=== PATIENT | male | born 1950 | race Caucasian/White ===

== ENCOUNTER 2017-02-02 06:12 | Day surgery (SDC) | payer MEDICARE, OTHER ==
[~2017-02-02 06:12] MED LIST: Lactated Ringers 1,000 ML IV SCH
[2017-02-02] MEDS ORDERED: Propofol 200 MG/20 ML SDV ONE ×2 (07:40→07:47)
[2017-02-02] MEDS ORDERED: fentaNYL 100 MCG/2 ML SDV ONE (07:40)
[2017-02-02 08:38] VITALS: BP 112/64
--- NOTE | 2017-02-02 11:55 | OR ---
PREOPERATIVE DIAGNOSES: 1. History of multiple polyps. 2. Family history of colon cancer - father. POSTOPERATIVE DIAGNOSES: Multiple polyps x7, sigmoid diverticulosis. PROCEDURE PROPOSED: Total flexible colonoscopy. PROCEDURE DONE: Total flexible colonoscopy with polypectomy x7. INDICATION: This is a 66-year-old gentleman who has been undergoing colonic surveillance due to a personal history of polyps and also a family history of colon cancer. His last examination was 3 years ago, at which point, he was found to have 7 polyps. TECHNIQUE: The patient was brought to the endoscopy suite and placed in left lateral decubitus position. He was sedated per [employer] with propofol. The flexible video colonoscope was then passed transanally and under visualization advanced to the cecum. The patient was found to have a couple of cecal polyps, 1 removed by cold snare technique right in the base of the cecum and another 1 just little bit beyond the cecum removed by cold biopsy forceps. I then found 3 polyps in the transverse colon, all removed by Jumbo cold biopsy forceps. A sixth polyp at 90 cm and another polyp found at 20 cm, again, removed by cold biopsy forceps. He was also noted to have some sigmoid diverticulosis, and the scope was then withdrawn. He tolerated the procedure well. FINAL IMPRESSION: 1. Sigmoid diverticulosis. 2. Colonic polyps x7. 3. Family history of colon cancer - father. PLAN: He will be sent a letter with the pathology report. I felt that he should have another 3-year repeat exam due to the multitude of polyps that are being found. SCM: 02/02/2017 08:10:04 MODL: 02/02/2017 11:50:20 /[id number]
--- NOTE | 2017-02-08 09:49 | LETTER ---
02/07/2017 RE: SHA MEJIA : 1950 Dear Dee: The polyps removed from your colon were all benign. There was a total of 7 polyps and they were all considered precancerous type polyps known as adenomas. Because of this finding, I feel that you should have a 3 year followup exam of your colon to make sure you are not continuing to form polyps. If you have any further questions regarding this feel free to call. Respectfully,
== END 2017-02-02 09:10 | disposition home or self-care (01) ==
LOC: VM.SDS 06:12
PROVIDERS: ATTEND Surgery
DX: Z12.11 Encounter for screening for malignant neoplasm of colon (principal); D12.0 Benign neoplasm of cecum; D12.6 Benign neoplasm of colon, unspecified; Z86.010 Personal history of colon polyps; K57.30 Diverticulosis of large intestine without perforation or abscess without bleeding; Z88.8 Allergy status to other drugs, medicaments and biological substances
CPT/HCPCS: 00810; 45380; 45385; J2704; J3010; J7120; 88305

== ENCOUNTER 2017-02-17 14:12 | Emergency (ER) | payer MEDICARE, OTHER ==
[2017-02-17] MEDS ORDERED: Sodium Chloride 0.9% 10 ML Syringe FLUSH PRN (14:46)
--- NOTE | 2017-02-17 14:55 | EDM.PDOC ---
ED HPI GENERAL MEDICAL PROBLEM - General Chief Complaint: General Stated Complaint: BP ISSUES Time Seen by Provider: 02/17/17 14:23 Source of Information: Reports: Patient, Family, RN, RN Notes Reviewed History Limitations: Reports: No Limitations - History of Present Illness INITIAL COMMENTS - FREE TEXT/NARRATIVE: Patient presents to the ED at [facility] complaining of feeling "foggy", delayed, and mild confusion. Patient states he felt this way this AM when he was getting ready for work. His symptoms progressively gotten worse. While at work, a nurse checked his blood pressure which shows 150's / 110's. Patient states his blood pressures usually run 120's / 60's. Patient denies any chest pain or SOB. Denies any N/V/D. No abdominal pain. Onset: Today - Related Data Allergies Allergy/AdvReac Type Severity Reaction Status Date / Time hay fever Allergy Itching Uncoded 02/02/17 06:43 Home Meds: Home Meds Furosemide [Lasix] 60 mg PO DAILY 12/12/13 [History] Multivits,Ca,Minerals/Iron/FA [Thera-M] 1 cap PO DAILY 12/12/13 [History] Verapamil [Calan SR] 1 tab PO DAILY 12/12/13 [History] Allopurinol [Zyloprim] 150 mg PO DAILY 01/25/17 [History] Clobetasol [Clobetasol Propionate 0.05%] 30 gm TOP BID 01/25/17 [History] Dabigatran Etexilate Mesylate [Pradaxa] 150 mg PO BID 01/25/17 [History] Tadalafil [Cialis] 5 mg PO DAILY PRN 01/25/17 [History] Past Medical History HEENT History: Reports: Allergic Rhinitis, Other (See Below) Other HEENT History: deviated nasal septum Cardiovascular History: Reports: Afib, High Cholesterol, Hypertension Respiratory History: Reports: COPD, Sleep Apnea Gastrointestinal History: Reports: Colon Polyp Genitourinary History: Reports: Other (See Below) Other Genitourinary History: ED Musculoskeletal History: Reports: Back Pain, Chronic, Gout, Osteoarthritis Neurological History: Reports: Other (See Below) Other Neuro History: tremor. mortons neuroma Psychiatric History: Reports: Addiction Endocrine/Metabolic History: Reports: Obesity/BMI 30+ Hematologic History: Reports: None Immunologic History: Reports: None Oncologic (Cancer) History: Reports: Prostate Dermatologic History: Reports: Eczema - Past Surgical History HEENT Surgical History: Reports: Tonsillectomy Cardiovascular Surgical History: Reports: Cardiac Ablation, Other (See Below) Other Cardiovascular Surgeries/Procedures: cardioversion x3 GI Surgical History: Reports: Colonoscopy Male Surgical History: Reports: TURBT-Transurethral Resection of Bladder Tumor Musculoskeletal Surgical History: Reports: Other (See Below) Other Musculoskeletal Surgeries/Procedures:: foot sx Oncologic Surgical History: Reports: None Dermatological Surgical History: Reports: None Social & Family History - Tobacco Use Smoking Status *Q: Former Smoker Used Tobacco, but Quit: Yes Month Tobacco Last Used: 20 years ago - Alcohol Use Days Per Week of Alcohol Use: 7 Number of Drinks Per Day: 6 Total Drinks Per Week: 42 - Recreational Drug Use Recreational Drug Use: No Drug Use in Last 12 Months: No ED ROS GENERAL - Review of Systems Review Of Systems: See Below Constitutional: Denies: Fever, Chills, Weakness Respiratory: Denies: Shortness of Breath, Cough Cardiovascular: Denies: Chest Pain, Palpitations GI/Abdominal: Reports: Nausea. Denies: Abdominal Pain, Vomiting Skin: Reports: No Symptoms Neurological: Reports: Confusion ("foggy"), Other. Denies: Dizziness, Headache ED EXAM, GENERAL - Physical Exam Exam: See Below Exam Limited By: No Limitations General Appearance: Alert, No Apparent Distress, Obese Eye Exam: Bilateral Eye: EOMI, Normal Inspection, PERRL Head: Atraumatic, Normocephalic Neck: Supple Respiratory/Chest: No Respiratory Distress, Lungs Clear, Normal Breath Sounds Cardiovascular: Regular Rate, Rhythm, No Murmur Peripheral Pulses: 2+: Radial (L), Radial (R) GI/Abdominal: Normal Bowel Sounds, Soft, Non-Tender Neurological: Alert, Oriented, Normal Cognition Skin Exam: Warm, Dry, Intact, Normal Color, No Rash EKG INTERPRETATION EKG Date: 02/17/17 Time: 14:23 Rhythm: NSR Rate (Beats/Min): [address] [employer]: Normal P-Wave: Present QRS: Normal ST-T: Normal QT: Normal NC/PQ Interval: 0.20 Comparison: NA - No Prior EKG EKG Interpretation Comments: 1. Normal Sinus Rhythm 2. Normal ECG Course - Vital Signs Last Recorded V/S: Last Vital Signs Temp 36.9 C 02/17/17 14:15 Pulse 82 02/17/17 14:15 Resp 20 02/17/17 14:15 BP 156/81 H 02/17/17 14:15 Pulse Ox - Orders/Labs/Meds Orders: Active Orders 24 hr Category Date Time Status Head wo Cont [CT] Stat Exams 02/17/17 14:44 Taken Sodium Chloride 0.9% [Saline Flush] Med 02/17/17 14:46 Active 10 ml FLUSH ASDIRECTED PRN Peripheral IV Insertion Adult [OM.PC] Routine Oth 02/17/17 14:46 Ordered Medication Orders Sodium Chloride (Saline Flush) 10 ml FLUSH ASDIRECTED PRN PRN Reason: Keep Vein Open Labs: Laboratory Tests 02/17/17 02/17/17 Range/Units 15:24 15:24 WBC 10.6 H (4.0-10.0) x10^3/uL RBC 5.00 (4.5-6.0) x10^6/uL Hgb 16.5 (14.0-18.0) g/dL Hct 47.0 (40.0-52.0) % MCV 94.0 H (78.0-93.0) fL MCH 33.0 H (26.0-32.0) pg MCHC 35.1 (32.0-36.0) g/dL RDW Coeff of Carine 12.9 (10.0-15.0) % Plt Count 180 (130-400) x10^3/uL Neut % (Auto) 53.4 (50.0-80.0) % Lymph % (Auto) 33.8 (25.0-50.0) % [place] % (Auto) 11.1 H (2.0-11.0) % Eos % (Auto) 1.5 (0.0-4.0) % Baso % (Auto) 0.2 (0.2-1.2) % Sodium 143 (136-145) mmol/L Potassium 3.6 (3.5-5.1) mmol/L Chloride 104 (98-107) mmol/L Carbon Dioxide 31 (21-32) mmol/L BUN 7 (7-18) mg/dL Creatinine 1.1 (0.70-1.30) mg/dL Est Cr Clr Drug Dosing 66.95 mL/min Estimated GFR (MDRD) > 60 Glucose 112 H (74-106) mg/dL Calcium 9.7 (8.5-10.1) mg/dL Meds: Medications Generic Name Dose Route Start Last Admin Trade Name Devenq PRN Reason Stop Dose Admin Sodium Chloride 10 ml 02/17/17 14:46 Saline Flush FLUSH ASDIRECTED PRN Keep Vein Open - Radiology Interpretation Free Text/Narrative:: CT Head: No plain CT evidence of acute intracranial process CT Results Date: 02/17/17 CT Results Time: 16:05 Departure - Departure Time of Disposition: 15:52 Disposition: Home, Self-Care 01 Condition: Good Clinical Impression: High blood pressure Qualifiers: Hypertension type: essential hypertension Qualified Code(s): I10 - Essential ( primary) hypertension - Discharge Information Instructions: Hypertension Referrals: Jorge Alberto Bernard MD [Primary Care Provider] - Forms: ED Department Discharge Additional Instructions: 1. Stay well hydrated and rest 2. Continue taking home blood pressure medications as prescribed 3. Make an appointment to see Dr. Bernard this week to see if there are any changes needed to your blood pressures medications 4. Call with any questions - Problem List Review Problem List Initiated/Reviewed/Updated: Yes - My Orders Last 24 Hours: My Active Orders 02/17/17 14:44 Head wo Cont [CT] Stat 02/17/17 14:46 Sodium Chloride 0.9% [Saline Flush] 10 ml FLUSH ASDIRECTED PRN Peripheral IV Insertion Adult [OM.PC] Routine - Assessment/Plan Last 24 Hours: My Active Orders 02/17/17 14:44 Head wo Cont [CT] Stat 02/17/17 14:46 Sodium Chloride 0.9% [Saline Flush] 10 ml FLUSH ASDIRECTED PRN Peripheral IV Insertion Adult [OM.PC] Routine
[2017-02-17 15:43] LABS: CHLORIDE,CL 104 mmol/L (98-107); SODIUM,NA 143 mmol/L (136-145)
[2017-02-17 16:39] VITALS: BP 149/87
== END 2017-02-17 16:20 | disposition home or self-care (01) ==
LOC: VM.ED 14:12
DX: I10 Essential (primary) hypertension (principal); I48.91 Unspecified atrial fibrillation; E78.00 Pure hypercholesterolemia, unspecified; J44.9 Chronic obstructive pulmonary disease, unspecified; M19.90 Unspecified osteoarthritis, unspecified site; M10.9 Gout, unspecified; E66.9 Obesity, unspecified; Z68.31 Body mass index [BMI] 31.0-31.9, adult; Z86.010 Personal history of colon polyps; Z90.89 Acquired absence of other organs; Z87.891 Personal history of nicotine dependence; Z79.899 Other long term (current) drug therapy
CPT/HCPCS: 36415; 70450; 80048; 85025; 99284; 99284-GF

== ENCOUNTER 2019-02-01 19:56 | Emergency (ER) | payer MEDICARE, OTHER ==
[2019-02-01 20:23] VITALS: PULSE 77
[2019-02-01 20:52] LABS: CHLORIDE,CL 102 mmol/L (98-107); SODIUM,NA 141 mmol/L (136-145)
[2019-02-01 20:53] LABS: ANION GAP 15.8 mmol/L (10-20)
--- NOTE | 2019-02-01 21:52 | EDM.PDOC ---
ED HPI GENERAL MEDICAL PROBLEM - General Chief Complaint: Genitourinary Problem Stated Complaint: blood in urine Time Seen by Provider: 02/01/19 20:05 Source of Information: Reports: Patient History Limitations: Reports: No Limitations - History of Present Illness INITIAL COMMENTS - FREE TEXT/NARRATIVE: Pt. presents to ER with 1 day history of improving mariam hematuria. Pt. states that it started last evening. Initially, the urine was quite red, but it has now been a dark antoinette. Denies any fever or chills. No flank pain. No groin pain. Denies any abdominal or CVA tenderness. Pt. denies any history of hematuria, nephrolithiasis, or urinary pathology. He does have a history of slow-growing prostate CA. Pt. is on pradaxa. He had cryoablation but continues to have intermittent issues with a-fib, so he continues to be anticoagulated. Denies any epistaxis, blood in stools, vomiting blood, bruising, or previous hematuria. Pt. denies any recent trauma. Onset Date: 01/31/19 - Related Data Allergies Allergy/AdvReac Type Severity Reaction Status Date / Time hay fever Allergy Itching Uncoded 02/01/19 20:17 Home Meds: Home Meds Furosemide [Lasix] 60 mg PO DAILY 12/12/13 [History] Multivits,Ca,Minerals/Iron/FA [Thera-M] 1 cap PO DAILY 12/12/13 [History] Verapamil [Calan SR] 1 tab PO DAILY 12/12/13 [History] Allopurinol [Zyloprim] 150 mg PO DAILY 01/25/17 [History] Clobetasol [Clobetasol Propionate 0.05%] 30 gm TOP BID 01/25/17 [History] Dabigatran Etexilate Mesylate [Pradaxa] 150 mg PO BID 01/25/17 [History] Tadalafil [Cialis] 5 mg PO DAILY PRN 01/25/17 [History] Past Medical History HEENT History: Reports: Allergic Rhinitis, Other (See Below) Other HEENT History: deviated nasal septum Cardiovascular History: Reports: Afib, High Cholesterol, Hypertension Respiratory History: Reports: COPD, Sleep Apnea Gastrointestinal History: Reports: Colon Polyp Genitourinary History: Reports: Other (See Below) Other Genitourinary History: ED Musculoskeletal History: Reports: Back Pain, Chronic, Gout, Osteoarthritis Neurological History: Reports: Other (See Below) Other Neuro History: tremor. mortons neuroma Psychiatric History: Reports: Addiction Endocrine/Metabolic History: Reports: Obesity/BMI 30+ Hematologic History: Reports: None Immunologic History: Reports: None Oncologic (Cancer) History: Reports: Prostate Dermatologic History: Reports: Eczema - Past Surgical History HEENT Surgical History: Reports: Tonsillectomy Cardiovascular Surgical History: Reports: Cardiac Ablation, Other (See Below) Other Cardiovascular Surgeries/Procedures: cardioversion x3 GI Surgical History: Reports: Colonoscopy Male Surgical History: Reports: TURBT-Transurethral Resection of Bladder Tumor Musculoskeletal Surgical History: Reports: Other (See Below) Other Musculoskeletal Surgeries/Procedures:: foot sx Oncologic Surgical History: Reports: None Dermatological Surgical History: Reports: None ED ROS GENERAL - Review of Systems Review Of Systems: See Below Constitutional: Reports: No Symptoms. Denies: Fever, Chills, Malaise, Weakness , Fatigue, Night Sweats, Diaphoresis, Decreased Appetite, Weight Loss HEENT: Reports: No Symptoms Respiratory: Reports: No Symptoms Cardiovascular: Reports: No Symptoms Endocrine: Reports: No Symptoms GI/Abdominal: Reports: No Symptoms. Denies: Abdominal Pain : Reports: Hematuria, Other (Hx prostate CA). Denies: Dysuria, Flank Pain, Frequency, Incontinence, Urgency Musculoskeletal: Reports: No Symptoms Skin: Reports: No Symptoms Neurological: Reports: No Symptoms Psychiatric: Reports: No Symptoms Hematologic/Lymphatic: Reports: No Symptoms Immunologic: Reports: No Symptoms ED EXAM, GENERAL - Physical Exam Exam: See Below Exam Limited By: No Limitations General Appearance: Alert, WD/WN, No Apparent Distress Respiratory/Chest: No Respiratory Distress, Lungs Clear, Normal Breath Sounds, No Accessory Muscle Use, Chest Non-Tender Cardiovascular: Normal Peripheral Pulses, Regular Rate, Rhythm, No Edema, No Gallop, No JVD, No Murmur, No Rub Peripheral Pulses: 4+: Radial (R) GI/Abdominal: Soft, Non-Tender, No Organomegaly, No Distention, No Mass (Male) Exam: Deferred Rectal (Males) Exam: Deferred Back Exam: No: CVA Tenderness (L), CVA Tenderness (R) Course - Vital Signs Last Recorded V/S: Last Vital Signs Temp 36.8 C 02/01/19 20:00 Pulse 77 02/01/19 20:00 Resp 16 02/01/19 20:00 BP Pulse Ox - Orders/Labs/Meds Labs: Laboratory Tests 02/01/19 02/01/19 02/01/19 Range/Units 20:10 20:24 20:24 WBC 10.0 (4.0-10.0) x10^3/uL RBC 5.14 (4.5-6.0) x10^6/uL Hgb 17.7 (14.0-18.0) g/dL Hct 49.8 (40.0-52.0) % MCV 96.9 H (78.0-93.0) fL MCH 34.4 H (26.0-32.0) pg MCHC 35.5 (32.0-36.0) g/dL RDW Coeff of Carine 11.9 (10.0-15.0) % Plt Count 174 (130-400) x10^3/uL Neut % (Auto) 56.9 (50.0-80.0) % Lymph % (Auto) 29.2 (25.0-50.0) % [place] % (Auto) 11.5 H (2.0-11.0) % Eos % (Auto) 2.2 (0.0-4.0) % Baso % (Auto) 0.2 (0.2-1.2) % PT 11.4 (10.0-12.8) SEC INR 1.0 L (2.0-3.5) Sodium (136-145) mmol/L Potassium (3.5-5.1) mmol/L Chloride (98-107) mmol/L Carbon Dioxide (21-32) mmol/L Anion Gap (10-20) mmol/L BUN (7-18) mg/dL Creatinine (0.70-1.30) mg/dL Est Cr Clr Drug Dosing mL/min Estimated GFR (MDRD) Glucose (74-106) mg/dL Calcium (8.5-10.1) mg/dL Corrected Calcium (8.5-10.1) mg/dL Total Bilirubin (0.2-1.0) mg/dL AST (15-37) U/L ALT (16-63) U/L Alkaline Phosphatase (46-116) U/L Total Protein (6.4-8.2) g/dL Albumin (3.4-5.0) g/dL Globulin Albumin/Globulin Ratio Urine Color Dark yellow H (YELLOW) Urine Appearance Cloudy H (CLEAR) Urine pH 5.5 (5.0-8.0) Ur Specific [place] 1.025 Urine Protein 30 H (NEGATIVE) mg/dL Urine Glucose (UA) Negative (NEGATIVE) mg/dL Urine Ketones Trace H (NEGATIVE) mg/dL Urine Occult Blood Large H (NEGATIVE) Urine Nitrite Negative (NEGATIVE) Urine Bilirubin Small H (NEGATIVE) Urine Urobilinogen 1.0 (0.2) EU/dL Ur Leukocyte Esterase Negative (NEGATIVE) Urine RBC >100 H (NOT SEEN) /HPF Urine WBC 0-5 (NOT SEEN) /HPF Ur Squamous Epith Cells Rare (NEGATIVE) /HPF Urine Bacteria Few H (NEGATIVE) /HPF Hyaline Casts Rare H (NEGATIVE) /HPF Urine Mucus Not seen (NEGATIVE) /LPF 02/01/19 Range/Units 20:24 WBC (4.0-10.0) x10^3/uL RBC (4.5-6.0) x10^6/uL Hgb (14.0-18.0) g/dL Hct (40.0-52.0) % MCV (78.0-93.0) fL MCH (26.0-32.0) pg MCHC (32.0-36.0) g/dL RDW Coeff of Carine (10.0-15.0) % Plt Count (130-400) x10^3/uL Neut % (Auto) (50.0-80.0) % Lymph % (Auto) (25.0-50.0) % [place] % (Auto) (2.0-11.0) % Eos % (Auto) (0.0-4.0) % Baso % (Auto) (0.2-1.2) % PT (10.0-12.8) SEC INR (2.0-3.5) Sodium 141 (136-145) mmol/L Potassium 3.8 (3.5-5.1) mmol/L Chloride 102 (98-107) mmol/L Carbon Dioxide 27 (21-32) mmol/L Anion Gap 15.8 (10-20) mmol/L BUN 9 (7-18) mg/dL Creatinine 1.1 (0.70-1.30) mg/dL Est Cr Clr Drug Dosing 65.17 mL/min Estimated GFR (MDRD) > 60 Glucose 158 H (74-106) mg/dL Calcium 9.6 (8.5-10.1) mg/dL Corrected Calcium 10.32 H (8.5-10.1) mg/dL Total Bilirubin 0.9 (0.2-1.0) mg/dL AST 22 (15-37) U/L ALT 30 (16-63) U/L Alkaline Phosphatase 91 (46-116) U/L Total Protein 6.9 (6.4-8.2) g/dL Albumin 3.1 L (3.4-5.0) g/dL Globulin 3.8 Albumin/Globulin Ratio 0.82 Urine Color (YELLOW) Urine Appearance (CLEAR) Urine pH (5.0-8.0) Ur Specific [place] Urine Protein (NEGATIVE) mg/dL Urine Glucose (UA) (NEGATIVE) mg/dL Urine Ketones (NEGATIVE) mg/dL Urine Occult Blood (NEGATIVE) Urine Nitrite (NEGATIVE) Urine Bilirubin (NEGATIVE) Urine Urobilinogen (0.2) EU/dL Ur Leukocyte Esterase (NEGATIVE) Urine RBC (NOT SEEN) /HPF Urine WBC (NOT SEEN) /HPF Ur Squamous Epith Cells (NEGATIVE) /HPF Urine Bacteria (NEGATIVE) /HPF Hyaline Casts (NEGATIVE) /HPF Urine Mucus (NEGATIVE) /LPF Departure - Departure Time of Disposition: 21:02 Disposition: Home, Self-Care 01 Condition: Good Clinical Impression: Hematuria - Discharge Information Instructions: Hematuria, Adult Referrals: Jorge Alberto Bernard MD [Primary Care Provider] - Forms: ED Department Discharge Additional Instructions: Follow-up in clinic if continuing to have blood in your urine. It is likely because of the Pradaxa. Your coagulation tests are normal, and you do not have a bladder infection. If you are continuing to have bleeding, you may need a renal ultrasound and cystoscopy to determine the cause. It likely will resolve on its own, however. Return to ER if you have flank pain, fever, chills, or abdominal pain. - Assessment/Plan Plan: Follow-up in clinic if continuing to have blood in your urine. It is likely because of the Pradaxa. Your coagulation tests are normal, and you do not have a bladder infection. If you are continuing to have bleeding, you may need a renal ultrasound and cystoscopy to determine the cause. It likely will resolve on its own, however. Return to ER if you have flank pain, fever, chills, or abdominal pain.
== END 2019-02-01 21:02 | disposition home or self-care (01) ==
LOC: VM.ED 19:56
DX: R31.9 Hematuria, unspecified (principal); I48.91 Unspecified atrial fibrillation; E78.00 Pure hypercholesterolemia, unspecified; I10 Essential (primary) hypertension; J44.9 Chronic obstructive pulmonary disease, unspecified; E66.9 Obesity, unspecified; Z79.899 Other long term (current) drug therapy
CPT/HCPCS: 36415; 80053; 81001; 85025; 85610; 99283; 99284-GF

== ENCOUNTER 2019-07-10 12:23 | Emergency (ER) | payer MEDICARE, OTHER ==
[2019-07-10] MEDS ORDERED: Meclizine 25 MG Tab PO ONE (12:43)
[2019-07-10] MEDS ORDERED: Sodium Chloride 0.9% 1,000 ML IV ONE (12:43)
[2019-07-10] MEDS ORDERED: dimenhyDRINATE 50 MG Tab PO ONE (12:43)
[2019-07-10 13:01] VITALS: BP 139/79; PULSE 60
--- NOTE | 2019-07-10 13:44 | CT ---
[id number] CT/CT Head WO IV EXAM: CT Head WO IV CLINICAL DATA: ACUTE VERTIGO. COMPARISON STUDY: 02/17/2017. FINDINGS: No intracranial hemorrhage, extra-axial fluid collection, mass, or acute ischemia. Generalized parenchymal atrophy with scattered areas of nonspecific white matter disease, commonly seen as sequela of chronic microvascular ischemia. Soft tissues are unremarkable. Paranasal sinuses and mastoid air cells are clear. IMPRESSION: No acute intracranial findings. Suraj Jarrett DO 07/10/19 [id number] Thank you for allowing us to participate in the care of your patient.
[2019-07-10 13:50] LABS: CHLORIDE,CL 103 mmol/L (98-107); SODIUM,NA 144 mmol/L (136-145)
--- NOTE | 2019-07-11 03:41 | EDM.PDOC ---
ED HPI GENERAL MEDICAL PROBLEM - General Chief Complaint: Neurological Problem Time Seen by Provider: 07/10/19 15:00 Source of Information: Reports: Patient History Limitations: Reports: No Limitations - History of Present Illness INITIAL COMMENTS - FREE TEXT/NARRATIVE: Pt. presents to ER via EMS. Pt. reports acute onset severe vertigo that started when the patient was at rest. He states that he feels as though the whole room is spinning. Denies any chest pain or shortness of breath. No palpitation. Pt. denies any headache. No troubles with speech or ambulation. He is nauseated and has vomited. Pt. states that he has never experienced symptoms like this in past. No recent URI symptoms or ear infections/pain/fullness. states speech has been clear. Denies any facial or extremity numbness. No facial droop. No aphasia. Onset Date: 07/10/19 Location: Reports: Generalized Associated Symptoms: Reports: Nausea/Vomiting. Denies: Chest Pain, Cough, cough w sputum, Diaphoresis, Fever/Chills, Headaches, Loss of Appetite, Malaise , Seizure, Shortness of Breath, Syncope, Weakness - Related Data Allergies Allergy/AdvReac Type Severity Reaction Status Date / Time hay fever Allergy Itching Uncoded 07/10/19 12:42 Home Meds: Home Meds Furosemide [Lasix] 60 mg PO DAILY 12/12/13 [History] Multivit,Calc,Mins/Iron/Folic [Thera-M] 1 cap PO DAILY 12/12/13 [History] Allopurinol [Zyloprim] 150 mg PO DAILY 01/25/17 [History] Clobetasol [Clobetasol Propionate 0.05%] 30 gm TOP BID 01/25/17 [History] Dabigatran Etexilate Mesylate [Pradaxa] 150 mg PO BID 01/25/17 [History] Esomeprazole Magnesium [Nexium] 20 mg PO DAILY 07/10/19 [History] Propranolol [Inderal] 40 mg PO BID 07/10/19 [History] atorvaSTATin [Lipitor] 10 mg PO BEDTIME 07/10/19 [History] Past Medical History HEENT History: Reports: Allergic Rhinitis, Other (See Below) Other HEENT History: deviated nasal septum Cardiovascular History: Reports: Afib, High Cholesterol, Hypertension Respiratory History: Reports: COPD, Sleep Apnea Gastrointestinal History: Reports: Colon Polyp Genitourinary History: Reports: Other (See Below) Other Genitourinary History: ED Musculoskeletal History: Reports: Back Pain, Chronic, Gout, Osteoarthritis Neurological History: Reports: Other (See Below) Other Neuro History: tremor. mortons neuroma Psychiatric History: Reports: Addiction Endocrine/Metabolic History: Reports: Obesity/BMI 30+ Hematologic History: Reports: None Immunologic History: Reports: None Oncologic (Cancer) History: Reports: Prostate Dermatologic History: Reports: Eczema - Past Surgical History HEENT Surgical History: Reports: Tonsillectomy Cardiovascular Surgical History: Reports: Cardiac Ablation, Other (See Below) Other Cardiovascular Surgeries/Procedures: cardioversion x3 GI Surgical History: Reports: Colonoscopy Male Surgical History: Reports: TURBT-Transurethral Resection of Bladder Tumor Musculoskeletal Surgical History: Reports: Other (See Below) Other Musculoskeletal Surgeries/Procedures:: foot sx Oncologic Surgical History: Reports: None Dermatological Surgical History: Reports: None ED ROS GENERAL - Review of Systems Review Of Systems: See Below Constitutional: Reports: No Symptoms HEENT: Reports: Vertigo Respiratory: Reports: No Symptoms Cardiovascular: Reports: No Symptoms Endocrine: Reports: No Symptoms GI/Abdominal: Reports: Nausea, Vomiting : Reports: No Symptoms Musculoskeletal: Reports: No Symptoms Skin: Reports: No Symptoms Neurological: Reports: Dizziness Psychiatric: Reports: No Symptoms Hematologic/Lymphatic: Reports: No Symptoms Immunologic: Reports: No Symptoms ED EXAM, GENERAL - Physical Exam Exam: See Below Exam Limited By: No Limitations General Appearance: Alert, WD/WN, No Apparent Distress Eye Exam: Bilateral Eye: EOMI, Normal Fundi, Nystagmus, PERRL Ears: Normal External Exam, Normal Canal, Normal TMs Ear Exam: Bilateral Ear: Auricle Normal, Canal Normal, TM normal Nose: Normal Inspection, Normal Mucosa, No Blood Throat/Mouth: Normal Inspection, Normal Lips, Normal Teeth, Normal Gums, Normal Oropharynx, Normal Voice, No Airway Compromise Head: Atraumatic, Normocephalic Neck: Normal Inspection, Supple, Non-Tender, Full Range of Motion Respiratory/Chest: No Respiratory Distress, Lungs Clear, Normal Breath Sounds, No Accessory Muscle Use, Chest Non-Tender Cardiovascular: Normal Peripheral Pulses, Regular Rate, Rhythm, No Edema, No Gallop, No JVD, No Murmur, No Rub Peripheral Pulses: 4+: Radial (L) GI/Abdominal: Normal Bowel Sounds, Soft, Non-Tender, No Organomegaly, No Distention Extremities: Normal Inspection, Normal Range of Motion, Non-Tender, No Pedal Edema, Normal Capillary Refill Neurological: Alert, Oriented, CN II-XII Intact, Normal Cognition, Normal Gait, Normal Reflexes, No Motor/Sensory Deficits Psychiatric: Normal Affect, Normal Mood Skin Exam: Warm, Dry, Intact, Normal Color, No Rash Course - Vital Signs Last Recorded V/S: Last Vital Signs Temp 35.7 C 07/10/19 12:25 Pulse 60 07/10/19 12:25 Resp 16 07/10/19 12:25 BP 139/79 07/10/19 12:25 Pulse Ox 97 07/10/19 12:25 - Orders/Labs/Meds Labs: Laboratory Tests 07/10/19 07/10/19 07/10/19 Range/Units 13:15 13:15 13:15 WBC 7.6 (4.0-10.0) x10^3/uL RBC 4.42 L (4.5-6.0) x10^6/uL Hgb 14.7 D (14.0-18.0) g/dL Hct 42.7 (40.0-52.0) % MCV 96.6 H (78.0-93.0) fL MCH 33.3 H (26.0-32.0) pg MCHC 34.4 (32.0-36.0) g/dL RDW Coeff of Carine 12.1 (10.0-15.0) % Plt Count 197 (130-400) x10^3/uL Neut % (Auto) 64.3 (50.0-80.0) % Lymph % (Auto) 22.7 L (25.0-50.0) % [place] % (Auto) 11.8 H (2.0-11.0) % Eos % (Auto) 0.9 (0.0-4.0) % Baso % (Auto) 0.3 (0.2-1.2) % PT 11.9 (10.0-12.8) SEC INR 1.0 L (2.0-3.5) Sodium 144 (136-145) mmol/L Potassium 4.0 (3.5-5.1) mmol/L Chloride 103 (98-107) mmol/L Carbon Dioxide 29 (21-32) mmol/L Anion Gap 16.0 (10-20) mmol/L BUN 7 (7-18) mg/dL Creatinine 0.8 (0.70-1.30) mg/dL Est Cr Clr Drug Dosing 92.52 mL/min Estimated GFR (MDRD) > 60 Glucose 152 H (74-106) mg/dL Calcium 9.2 (8.5-10.1) mg/dL Corrected Calcium 10.24 H (8.5-10.1) mg/dL Total Bilirubin 0.7 (0.2-1.0) mg/dL AST 20 (15-37) U/L ALT 20 (16-63) U/L Alkaline Phosphatase 94 (46-116) U/L Troponin I < 0.017 (<=0.056) ng/mL Total Protein 6.3 L (6.4-8.2) g/dL Albumin 2.7 L (3.4-5.0) g/dL Globulin 3.6 Albumin/Globulin Ratio 0.75 TSH, Ultra Sensitive 1.830 (0.358-3.74) uIU/mL Meds: Medications Discontinued Medications Generic Name Dose Route Start Last Admin Trade Name Freq PRN Reason Stop Dose Admin Dimenhydrinate 50 mg 07/10/19 12:43 07/10/19 12:53 Driminate PO 07/10/19 12:44 50 mg ONETIME ONE Administration Sodium Chloride 1,000 mls @ 1,000 mls/hr 07/10/19 12:43 07/10/19 12:53 Normal Saline IV 07/10/19 13:42 1,000 mls/hr .BOLUS ONE Administration Meclizine HCl 25 mg 07/10/19 12:43 07/10/19 12:53 Antivert PO 07/10/19 12:44 25 mg ONETIME ONE Administration Departure - Departure Time of Disposition: 16:30 Disposition: Home, Self-Care 01 Clinical Impression: Vertigo - Discharge Information Instructions: Vertigo, [id number] Referrals: Jorge Alberto Bernard MD [Primary Care Provider] - Forms: ED Department Discharge Additional Instructions: Home to rest. OTC meclizine 25mg every 4-6 hours for dizziness/nausea. Follow-up in clinic or with PT as needed. Sepsis Event Note - Focused Exam Date Exam was Performed: 07/16/19 Time Exam was Performed: 14:15 - Problem List Review Problem List Initiated/Reviewed/Updated: Yes - Assessment/Plan Plan: Pt. was started on meclizine 25mg every 4-6 hours as needed for pain. PT today for vestibular therapy. Follow-up in clinic in 7-10 days, sooner if not improving.
== END 2019-07-10 14:55 | disposition home or self-care (01) ==
LOC: VM.ED 12:23
DX: R42 Dizziness and giddiness (principal); I48.91 Unspecified atrial fibrillation; E78.00 Pure hypercholesterolemia, unspecified; I10 Essential (primary) hypertension; J44.9 Chronic obstructive pulmonary disease, unspecified; E66.9 Obesity, unspecified; Z68.29 Body mass index [BMI] 29.0-29.9, adult; Z91.09 Other allergy status, other than to drugs and biological substances; Z79.01 Long term (current) use of anticoagulants; Z79.899 Other long term (current) drug therapy; Z85.46 Personal history of malignant neoplasm of prostate
CPT/HCPCS: 36415; 70450; 80053; 84443; 84484; 85025; 85610; 93005; 96360; 99284-GF; 99285-25; A9270-GY; J7030

== ENCOUNTER 2019-10-21 20:58 | Emergency (ER) | payer MEDICARE, OTHER ==
[~2019-10-21 20:58] MED LIST changes: -Lactated Ringers 1,000 ML IV SCH; +Sodium Chloride 0.9% 10 ML Syringe FLUSH PRN
[2019-10-21] MEDS ORDERED: Aspirin 81 MG Tab.Chew PO ONE (21:06)
[2019-10-21] MEDS ORDERED: GI Cocktail Oral Solution 30 ML PO ONE (21:06)
--- NOTE | 2019-10-21 21:13 | EDM.PDOC ---
ED HPI GENERAL MEDICAL PROBLEM - General Stated Complaint: CHEST PAIN Time Seen by Provider: 10/21/19 21:00 Source of Information: Reports: Patient History Limitations: Reports: No Limitations - History of Present Illness INITIAL COMMENTS - FREE TEXT/NARRATIVE: Patient comes emergency department today with complaints of epigastric pain. Since about 2-3 this afternoon the patient has had constant sharp shooting stabbing waxing and waning epigastric pain that goes into his back. He initially thought it was gas pain he has not tried anything for the pain in the continues. Said no nausea or vomiting. No chest pain or shortness of breath weakness dizziness lightheadedness. No palpitations. No cough or congestion. No fever no chills. No nausea no vomiting. No black or tarry stools. No diarrhea. No any other abdominal pain. He does complain of some chronic edema to his lower extremities more on the left than the right no more than normal today. There is no change in the sensation or the functionality of his lower or upper extremities. The pain in his epigastric region gets worse with deep breath cough and movement. - Related Data Allergies Allergy/AdvReac Type Severity Reaction Status Date / Time hay fever Allergy Itching Uncoded 07/10/19 12:42 Home Meds: Home Meds Furosemide [Lasix] 60 mg PO DAILY 12/12/13 [History] Multivit,Calc,Mins/Iron/Folic [Thera-M] 1 cap PO DAILY 12/12/13 [History] Allopurinol [Zyloprim] 150 mg PO DAILY 01/25/17 [History] Clobetasol [Clobetasol Propionate 0.05%] 30 gm TOP BID 01/25/17 [History] Dabigatran Etexilate Mesylate [Pradaxa] 150 mg PO BID 01/25/17 [History] Esomeprazole Magnesium [Nexium] 20 mg PO DAILY 07/10/19 [History] Propranolol [Inderal] 40 mg PO BID 07/10/19 [History] atorvaSTATin [Lipitor] 10 mg PO BEDTIME 07/10/19 [History] Past Medical History HEENT History: Reports: Allergic Rhinitis, Other (See Below) Other HEENT History: deviated nasal septum Cardiovascular History: Reports: Afib, High Cholesterol, Hypertension Respiratory History: Reports: COPD, Sleep Apnea Gastrointestinal History: Reports: Colon Polyp Genitourinary History: Reports: Other (See Below) Other Genitourinary History: ED Musculoskeletal History: Reports: Back Pain, Chronic, Gout, Osteoarthritis Neurological History: Reports: Other (See Below) Other Neuro History: tremor. mortons neuroma Psychiatric History: Reports: Addiction Endocrine/Metabolic History: Reports: Obesity/BMI 30+ Hematologic History: Reports: None Immunologic History: Reports: None Oncologic (Cancer) History: Reports: Prostate Dermatologic History: Reports: Eczema - Past Surgical History HEENT Surgical History: Reports: Tonsillectomy Cardiovascular Surgical History: Reports: Cardiac Ablation, Other (See Below) Other Cardiovascular Surgeries/Procedures: cardioversion x3 GI Surgical History: Reports: Colonoscopy Male Surgical History: Reports: TURBT-Transurethral Resection of Bladder Tumor Musculoskeletal Surgical History: Reports: Other (See Below) Other Musculoskeletal Surgeries/Procedures:: foot sx Oncologic Surgical History: Reports: None Dermatological Surgical History: Reports: None ED ROS GENERAL - Review of Systems Review Of Systems: Comprehensive ROS is negative, except as noted in HPI. ED EXAM, GI/ABD - Physical Exam Exam: See Below Text/Narrative:: He does have a positive [place] sign when he walks in. Exam Limited By: No Limitations General Appearance: Alert, WD/WN, Mild Distress Eyes: Bilateral: EOMI Ears: Normal External Exam Nose: Normal Inspection Throat/Mouth: Normal Inspection Head: Atraumatic, Normocephalic Neck: Normal Inspection, Supple Respiratory/Chest: No Respiratory Distress, Lungs Clear, Normal Breath Sounds, No Accessory Muscle Use Cardiovascular: Normal Peripheral Pulses, Regular Rate, Rhythm, No Murmur, No Rub GI/Abdominal Exam: Normal Bowel Sounds, Soft, No Organomegaly, Tender ( Epigastric region with guarding and positive [place] sign to the RUQ with guarding no rebound tenderness. ). No: Distended, Rigid Back Exam: Normal Inspection, Full Range of Motion. No: CVA Tenderness (L), CVA Tenderness (R) Extremities: Normal Inspection, Normal Range of Motion, No Pedal Edema, Normal Capillary Refill Neurological: Alert, Oriented, Normal Cognition, No Motor/Sensory Deficits Psychiatric: Normal Affect, Normal Mood Skin Exam: Dry, Intact, Normal Color, Cool Course - Orders/Labs/Meds Orders: Active Orders 24 hr Category Date Time Status EKG Documentation Completion [RC] STAT Care 10/21/19 20:58 Active Chest 1V Frontal [CR] Stat Exams 10/21/19 20:58 Taken CULTURE BLOOD [BC] Stat Lab 10/21/19 22:24 Ordered CULTURE BLOOD [BC] Stat Lab 10/21/19 22:24 Ordered CULTURE STREP A CONFIRMATION [RM] Stat Lab 10/21/19 21:30 Results LACTIC ACID [CHEM] Stat Lab 10/21/19 22:24 Ordered STREP SCRN A RAPID W CULT CONF [RM] Stat Lab 10/21/19 21:30 Results Acetaminophen [Tylenol Extra Strength] Med 10/21/19 22:30 Once 1,000 mg PO ONETIME ONE Lactated Ringers @ 125 MLS/HR(1,000ml) Med 10/21/19 22:30 Ordered Lactated Ringers [Ringers, Lactated] 1,000 ml IV ASDIRECTED Lactated Ringers [Ringers, Lactated] 500 ml Med 10/21/19 22:29 Ordered IV ONETIME Sodium Chloride 0.9% [Saline Flush] Med 10/21/19 20:58 Active 10 ml FLUSH ASDIRECTED PRN Blood Culture x2 Reflex Set [OM.PC] Stat Oth 10/21/19 22:24 Ordered Peripheral IV Insertion Adult [OM.PC] Stat Oth 10/21/19 20:58 Ordered Medication Orders Lactated Ringer's (Ringers, Lactated) 500 mls @ 999 mls/hr IV ONETIME ONE Stop: 10/21/19 22:59 Sodium Chloride (Saline Flush) 10 ml FLUSH ASDIRECTED PRN PRN Reason: Keep Vein Open Labs: Laboratory Tests 10/21/19 10/21/19 10/21/19 Range/Units 21:15 21:15 21:15 WBC 11.7 H (4.0-10.0) x10^3/uL RBC 4.51 (4.5-6.0) x10^6/uL Hgb 14.9 (14.0-18.0) g/dL Hct 43.2 (40.0-52.0) % MCV 95.8 H (78.0-93.0) fL MCH 33.0 H (26.0-32.0) pg MCHC 34.5 (32.0-36.0) g/dL RDW Coeff of Carine 12.5 (10.0-15.0) % Plt Count 181 (130-400) x10^3/uL Neut % (Auto) 78.9 (50.0-80.0) % Lymph % (Auto) 12.2 L (25.0-50.0) % [place]field % (Auto) 7.7 (2.0-11.0) % Eos % (Auto) 1.0 (0.0-4.0) % Baso % (Auto) 0.2 (0.2-1.2) % Sodium 141 (136-145) mmol/L Potassium 3.9 (3.5-5.1) mmol/L Chloride 102 (98-107) mmol/L Carbon Dioxide 28 (21-32) mmol/L Anion Gap 14.9 (10-20) mmol/L BUN 7 (7-18) mg/dL Creatinine 0.9 (0.70-1.30) mg/dL Est Cr Clr Drug Dosing TNP Estimated GFR (MDRD) > 60 Glucose 167 H (74-106) mg/dL Calcium 9.9 (8.5-10.1) mg/dL Corrected Calcium 10.62 H (8.5-10.1) mg/dL Total Bilirubin 3.0 H (0.2-1.0) mg/dL AST 355 H (15-37) U/L ALT 206 H (16-63) U/L Alkaline Phosphatase 296 H (46-116) U/L Troponin I < 0.017 (<=0.056) ng/mL C-Reactive Protein (<=0.9) mg/dL Total Protein 7.2 (6.4-8.2) g/dL Albumin 3.1 L (3.4-5.0) g/dL Globulin 4.1 Albumin/Globulin Ratio 0.76 Lipase 341 (73-393) U/L 03/24/20 Range/Units 21:15 WBC (4.0-10.0) x10^3/uL RBC (4.5-6.0) x10^6/uL Hgb (14.0-18.0) g/dL Hct (40.0-52.0) % MCV (78.0-93.0) fL MCH (26.0-32.0) pg MCHC (32.0-36.0) g/dL RDW Coeff of Carine (10.0-15.0) % Plt Count (130-400) x10^3/uL Neut % (Auto) (50.0-80.0) % Lymph % (Auto) (25.0-50.0) % [place] % (Auto) (2.0-11.0) % Eos % (Auto) (0.0-4.0) % Baso % (Auto) (0.2-1.2) % Sodium (136-145) mmol/L Potassium (3.5-5.1) mmol/L Chloride (98-107) mmol/L Carbon Dioxide (21-32) mmol/L Anion Gap (10-20) mmol/L BUN (7-18) mg/dL Creatinine (0.70-1.30) mg/dL Est Cr Clr Drug Dosing Estimated GFR (MDRD) Glucose (74-106) mg/dL Calcium (8.5-10.1) mg/dL Corrected Calcium (8.5-10.1) mg/dL Total Bilirubin (0.2-1.0) mg/dL AST (15-37) U/L ALT (16-63) U/L Alkaline Phosphatase (46-116) U/L Troponin I (<=0.056) ng/mL C-Reactive Protein 6.0 H (<=0.9) mg/dL Total Protein (6.4-8.2) g/dL Albumin (3.4-5.0) g/dL Globulin Albumin/Globulin Ratio Lipase (73-393) U/L Microbiology 10/21/19 21:30 Nasopharyngeal Swab Influenza Type A Antigen Screen - Final NEGATIVE INFLUENZA A VIRUS AG REFERENCE RANGE: NEGATIVE 10/21/19 21:30 Nasopharyngeal Swab Influenza Type B Antigen Screen - Final NEGATIVE INFLUENZA B VIRUS AG REFERENCE RANGE: NEGATIVE 10/21/19 21:30 Throat Group A Streptococcus Rapid Screen - Final NEGATIVE STREP A SCREEN REFERENCE RANGE: NEGATIVE Meds: Medications Generic Name Dose Route Start Last Admin Trade Name Freq PRN Reason Stop Dose Admin Lactated Ringer's 500 mls @ 999 mls/hr 10/21/19 22:29 Ringers, Lactated IV 10/21/19 22:59 ONETIME ONE Sodium Chloride 10 ml 10/21/19 20:58 Saline Flush FLUSH ASDIRECTED PRN Keep Vein Open Discontinued Medications Generic Name Dose Route Start Last Admin Trade Name Floyd PRN Reason Stop Dose Admin Al Hydroxide/Mg Hydroxide 30 ml 10/21/19 21:06 Gi Cocktail PO 10/21/19 21:07 ONETIME ONE Aspirin 324 mg 10/21/19 21:06 Aspirin PO 10/21/19 21:07 ONETIME ONE Ertapenem 1 gm 10/21/19 22:13 Invanz IVPUSH 10/21/19 22:14 STAT ONE Morphine Sulfate 4 mg 10/21/19 21:51 Morphine IVPUSH 10/21/19 21:52 ONETIME ONE Ondansetron HCl 4 mg 10/21/19 21:32 Zofran IV 10/21/19 21:33 ONETIME ONE - Re-Assessments/Exams Free Text/Narrative Re-Assessment/Exam: 10/21/19 22:35 Aspirin 324 tab chew GI cocktail without any change in symptoms. EKG nrml CXR negative His pain did get worse which improved after 4mg of morphine did have 1 emesis while in the ED resolved with Zofran. Liver enzymes are quite elevated as well as his T Christian. Influenza and strep negative. NO pneumonia. No other signs of infection concerns for acute cholecystitis vs acute cholangitis. Blood cultures x 2 pending. 1 gram of invanz IVP. I called and spoke with DR. King Thomas at [facility]. HPI ER COURSE findings and concerns were relayed to her verbally over the phone. Her questions were answered and she accepted the patient in transfer. I discussed the findings with the patient and my concerns for the above pathology. We do not have US capability at this time but either way with the fever enzyme elevation he needs an US and surgeon evaluation. He is comfortable with the plan to go to [facility]. His questions were answered and family updated. 10/21/19 22:39 Departure - Departure Time of Disposition: 22:30 Disposition: DC/Tfer to Acute Hospital 02 Clinical Impression: RUQ pain, Elevated liver function tests, Total bilirubin, elevated - Discharge Information Forms: [facility] Sepsis Event Note - Focused Exam Date Exam was Performed: 10/21/19 Time Exam was Performed: 22:30 ED Communication - Discussed Case With (1) Discussed Case With (1): Admitting Provider (Dr. King Thomas at [facility]. HPI ER COURSE findings and concerns were relayed to her verbally over the phone. Her questions answered and she accepted the patient in transfer at this time.) - My Orders Last 24 Hours: My Active Orders 10/21/19 20:58 EKG Documentation Completion [RC] STAT Chest 1V Frontal [CR] Stat Sodium Chloride 0.9% [Saline Flush] 10 ml FLUSH ASDIRECTED PRN Peripheral IV Insertion Adult [OM.PC] Stat 10/21/19 21:30 CULTURE STREP A CONFIRMATION [RM] Stat STREP SCRN A RAPID W CULT CONF [RM] Stat 10/21/19 22:24 CULTURE BLOOD [BC] Stat CULTURE BLOOD [BC] Stat LACTIC ACID [CHEM] Stat Blood Culture x2 Reflex Set [OM.PC] Stat 10/21/19 22:29 Lactated Ringers [Ringers, Lactated] 500 ml IV ONETIME 10/21/19 22:30 Acetaminophen [Tylenol Extra Strength] 1,000 mg PO ONETIME ONE Lactated Ringers @ 125 MLS/HR(1,000ml) Lactated Ringers [Ringers, Lactated] 1, 000 ml IV ASDIRECTED - Assessment/Plan Last 24 Hours: My Active Orders 10/21/19 20:58 EKG Documentation Completion [RC] STAT Chest 1V Frontal [CR] Stat Sodium Chloride 0.9% [Saline Flush] 10 ml FLUSH ASDIRECTED PRN Peripheral IV Insertion Adult [OM.PC] Stat 10/21/19 21:30 CULTURE STREP A CONFIRMATION [RM] Stat STREP SCRN A RAPID W CULT CONF [RM] Stat 10/21/19 22:24 CULTURE BLOOD [BC] Stat CULTURE BLOOD [BC] Stat LACTIC ACID [CHEM] Stat Blood Culture x2 Reflex Set [OM.PC] Stat 10/21/19 22:29 Lactated Ringers [Ringers, Lactated] 500 ml IV ONETIME 10/21/19 22:30 Acetaminophen [Tylenol Extra Strength] 1,000 mg PO ONETIME ONE Lactated Ringers @ 125 MLS/HR(1,000ml) Lactated Ringers [Ringers, Lactated] 1, 000 ml IV ASDIRECTED Assessment:: RUQ pain, ? acute cholecystitis vs acute cholangitis. Plan: Transfer by ambulance to [facility] for further care and evaluation.
[2019-10-21] MEDS ORDERED: Ondansetron 4 MG/2 ML SDV IV ONE (21:32)
[2019-10-21 21:43] LABS: ANION GAP 14.9 mmol/L (10-20); CHLORIDE,CL 102 mmol/L (98-107); SODIUM,NA 141 mmol/L (136-145)
[2019-10-21] MEDS ORDERED: Morphine 4 MG/ML Syringe IVPUSH ONE (21:51)
[2019-10-21] MEDS ORDERED: Ertapenem 1 GM Vial IVPUSH ONE (22:13)
[2019-10-21] MEDS ORDERED: Lactated Ringers 500 ML IV ONE (22:29)
[2019-10-21] MEDS ORDERED: Lactated Ringers 1,000 ML IV SCH (22:30)
[2019-10-21] MEDS: Acetaminophen 500 MG Tab PO ONE ×2 (22:43→23:42)
[2019-10-22 00:46] VITALS: BP 156/64; PULSE 84
--- NOTE | 2019-10-22 07:37 | CR ---
[id number] RAD/RAD Chest PA or AP 1V EXAM: FRONTAL CHEST INDICATION: CHEST PAIN. COMPARISON: None. DISCUSSION: The lungs are mildly hypoinflated, but clear. The heart is at upper limits of normal for size. IMPRESSION: 1. Hypoinflation. Otherwise negative examination. Delfino Parikh MD 10/22/19 0734 Thank you for allowing us to participate in the care of your patient.
== END 2019-10-21 23:15 | disposition short-term general hospital (02) ==
LOC: VM.ED 20:58
DX: R10.11 Right upper quadrant pain (principal); R17 Unspecified jaundice; E66.9 Obesity, unspecified; Z68.28 Body mass index [BMI] 28.0-28.9, adult; M10.9 Gout, unspecified; J44.9 Chronic obstructive pulmonary disease, unspecified; E78.00 Pure hypercholesterolemia, unspecified; I10 Essential (primary) hypertension; I48.91 Unspecified atrial fibrillation; Z79.899 Other long term (current) drug therapy
CPT/HCPCS: 36415; 71045; 80053; 83605; 83690; 84484; 85025; 86140; 87040; 87077; 87081; 87186; 87804; 87880; 93005; 96374; 96375; 99284; 99285; A9270; J1335; J2270; J2405; J7120

== ENCOUNTER 2019-12-06 21:49 | Observation (INO) | payer MEDICARE, OTHER ==
[2019-12-06] MEDS ORDERED: Sodium Chloride 0.9% 10 ML Syringe FLUSH PRN (21:57)
--- NOTE | 2019-12-06 22:26 | EDM.PDOC ---
ED HPI GENERAL MEDICAL PROBLEM - General Stated Complaint: ER Time Seen by Provider: 12/06/19 22:01 Source of Information: Reports: Patient History Limitations: Reports: No Limitations - History of Present Illness INITIAL COMMENTS - FREE TEXT/NARRATIVE: Patient comes emergency department today with acute onset of dizziness blurred vision and paresthesia of the left arm. Acutely at 2100 hrs. tonight the patient had a rather quick onset of dizziness that he relates as lightheadedness. The room does not spin. He does feel unsteady on his feet at time. He also complains of blurriness to his vision. No double vision. No headache. No recent falls or head trauma. He does have a history of atrial fibrillation for which she had cryoablation for. He has not had any chest pain palpitations. No weakness syncope or irregular heartbeat. No fast or slow heart palpitations. No shortness of breath or difficulty breathing. No fever no chills. He denies any abdominal pain nausea or vomiting. He does complain of some numbness to his left hand which is slowly improved. No weakness or ataxia of his upper or lower extremities. No change in the functionality of his upper or lower extremities. - Related Data Allergies Allergy/AdvReac Type Severity Reaction Status Date / Time hay fever Allergy Itching Uncoded 10/21/19 22:33 Home Meds: Home Meds Furosemide [Lasix] 60 mg PO DAILY 12/12/13 [History] Multivit,Calc,Mins/Iron/Folic [Thera-M] 1 cap PO DAILY 12/12/13 [History] Allopurinol [Zyloprim] 150 mg PO DAILY 01/25/17 [History] Clobetasol [Clobetasol Propionate 0.05%] 30 gm TOP BID 01/25/17 [History] Dabigatran Etexilate Mesylate [Pradaxa] 150 mg PO BID 01/25/17 [History] Esomeprazole Magnesium [Nexium] 20 mg PO DAILY 07/10/19 [History] Propranolol [Inderal] 40 mg PO BID 07/10/19 [History] atorvaSTATin [Lipitor] 10 mg PO BEDTIME 07/10/19 [History] Past Medical History HEENT History: Reports: Allergic Rhinitis, Other (See Below) Other HEENT History: deviated nasal septum Cardiovascular History: Reports: Afib, High Cholesterol, Hypertension Respiratory History: Reports: COPD, Sleep Apnea Gastrointestinal History: Reports: Colon Polyp Genitourinary History: Reports: Other (See Below) Other Genitourinary History: ED Musculoskeletal History: Reports: Back Pain, Chronic, Gout, Osteoarthritis Neurological History: Reports: Other (See Below) Other Neuro History: tremor. mortons neuroma Psychiatric History: Reports: Addiction Endocrine/Metabolic History: Reports: Obesity/BMI 30+ Hematologic History: Reports: None Immunologic History: Reports: None Oncologic (Cancer) History: Reports: Prostate Dermatologic History: Reports: Eczema - Past Surgical History HEENT Surgical History: Reports: Tonsillectomy Cardiovascular Surgical History: Reports: Cardiac Ablation, Other (See Below) Other Cardiovascular Surgeries/Procedures: cardioversion x3 GI Surgical History: Reports: Colonoscopy Male Surgical History: Reports: TURBT-Transurethral Resection of Bladder Tumor Musculoskeletal Surgical History: Reports: Other (See Below) Other Musculoskeletal Surgeries/Procedures:: foot sx Oncologic Surgical History: Reports: None Dermatological Surgical History: Reports: None ED ROS GENERAL - Review of Systems Review Of Systems: Comprehensive ROS is negative, except as noted in HPI. ED EXAM, NEURO - Physical Exam Exam: See Below Text/Narrative:: NIH 0 Exam Limited By: No Limitations General Appearance: Alert, WD/WN, No Apparent Distress Eye Exam: Bilateral Eye: EOMI, Normal Inspection, PERRL Ears: Normal External Exam, Normal TMs Nose: Normal Inspection Throat/Mouth: Normal Inspection, Normal Oropharynx Head Exam: Atraumatic, Normocephalic Neck: Normal Inspection, Supple, Non-Tender Respiratory/Chest: No Respiratory Distress, Lungs Clear, Normal Breath Sounds, No Accessory Muscle Use, Chest Non-Tender Cardiovascular: Normal Peripheral Pulses, Regular Rate, Rhythm GI/Abdominal: Normal Bowel Sounds, Soft, Non-Tender (Male) Exam: Deferred Rectal (Males) Exam: Deferred Neurological: Alert, Normal Mood/Affect, Normal Dorsiflexion, CN II-XII Intact, Normal Plantar Flexion, Normal Gait, Normal Reflexes, No Motor/Sensory Deficits , Oriented x 3 Back Exam: Normal Inspection, Full Range of Motion, Paraspinal Tenderness. No: CVA Tenderness (L), CVA Tenderness (R) Extremities: Normal Range of Motion, No Pedal Edema, Normal Capillary Refill Psychiatric: Normal Affect, Normal Mood Skin Exam: Warm, Dry, Intact, Normal Color, No Rash EKG INTERPRETATION EKG Date: 12/06/19 Time: 21:52 Rhythm: NSR Rate (Beats/Min): 59 [place]: Normal P-Wave: Present QRS: Normal ST-T: Normal QT: Normal Comparison: No Change Course - Orders/Labs/Meds Orders: Active Orders 24 hr Category Date Time Status Admission Status [Patient Status] [ADT] Routine ADT 12/06/19 23:33 Active EKG Documentation Completion [RC] STAT Care 12/06/19 21:57 Active Ang Head [CT] Stat Exams 12/06/19 21:58 Taken CTA Neck W & W/O Contrast [Ang Neck] [CT] Stat Exams 12/06/19 21:58 Taken Head wo Cont [CT] Stat Exams 12/06/19 21:57 Taken Sodium Chloride 0.9% [Saline Flush] Med 12/06/19 21:57 Active 10 ml FLUSH ASDIRECTED PRN Peripheral IV Insertion Adult [OM.PC] Stat Oth 12/06/19 21:57 Ordered Medication Orders Sodium Chloride (Saline Flush) 10 ml FLUSH ASDIRECTED PRN PRN Reason: Keep Vein Open Labs: Laboratory Tests 12/06/19 12/06/19 12/06/19 Range/Units 22:06 22:07 22:07 WBC 9.2 (4.0-10.0) x10^3/uL RBC 4.69 (4.5-6.0) x10^6/uL Hgb 15.5 (14.0-18.0) g/dL Hct 44.2 (40.0-52.0) % MCV 94.2 H (78.0-93.0) fL MCH 33.0 H (26.0-32.0) pg MCHC 35.1 (32.0-36.0) g/dL RDW Coeff of Carine 12.0 (10.0-15.0) % Plt Count 238 (130-400) x10^3/uL Neut % (Auto) 54.2 (50.0-80.0) % Lymph % (Auto) 28.1 (25.0-50.0) % [place] % (Auto) 14.9 H (2.0-11.0) % Eos % (Auto) 2.5 (0.0-4.0) % Baso % (Auto) 0.3 (0.2-1.2) % PT 10.4 (9.5-12.3) SEC INR 1.0 L (2.0-3.5) APTT 27.8 (25.6-32.8) SEC Sodium (136-145) mmol/L Potassium (3.5-5.1) mmol/L Chloride (98-107) mmol/L Carbon Dioxide (21-32) mmol/L Anion Gap (10-20) mmol/L BUN (7-18) mg/dL Creatinine (0.70-1.30) mg/dL Est Cr Clr Drug Dosing Estimated GFR (MDRD) Glucose (74-106) mg/dL Calcium (8.5-10.1) mg/dL Corrected Calcium (8.5-10.1) mg/dL Total Bilirubin (0.2-1.0) mg/dL AST (15-37) U/L ALT (16-63) U/L Alkaline Phosphatase (46-116) U/L POC Troponin I 0.00 (0.00-0.08) ng/mL Total Protein (6.4-8.2) g/dL Albumin (3.4-5.0) g/dL Globulin Albumin/Globulin Ratio 12/06/19 Range/Units 22:07 WBC (4.0-10.0) x10^3/uL RBC (4.5-6.0) x10^6/uL Hgb (14.0-18.0) g/dL Hct (40.0-52.0) % MCV (78.0-93.0) fL MCH (26.0-32.0) pg MCHC (32.0-36.0) g/dL RDW Coeff of Carine (10.0-15.0) % Plt Count (130-400) x10^3/uL Neut % (Auto) (50.0-80.0) % Lymph % (Auto) (25.0-50.0) % [place] % (Auto) (2.0-11.0) % Eos % (Auto) (0.0-4.0) % Baso % (Auto) (0.2-1.2) % PT (9.5-12.3) SEC INR (2.0-3.5) APTT (25.6-32.8) SEC Sodium 142 (136-145) mmol/L Potassium 4.1 (3.5-5.1) mmol/L Chloride 103 (98-107) mmol/L Carbon Dioxide 29 (21-32) mmol/L Anion Gap 14.1 (10-20) mmol/L BUN 6 L (7-18) mg/dL Creatinine 0.9 (0.70-1.30) mg/dL Est Cr Clr Drug Dosing TNP Estimated GFR (MDRD) > 60 Glucose 142 H (74-106) mg/dL Calcium 10.1 (8.5-10.1) mg/dL Corrected Calcium 10.74 H (8.5-10.1) mg/dL Total Bilirubin 0.8 (0.2-1.0) mg/dL AST 23 (15-37) U/L ALT 25 (16-63) U/L Alkaline Phosphatase 111 (46-116) U/L POC Troponin I (0.00-0.08) ng/mL Total Protein 7.0 (6.4-8.2) g/dL Albumin 3.2 L (3.4-5.0) g/dL Globulin 3.8 Albumin/Globulin Ratio 0.84 Meds: Medications Generic Name Dose Route Start Last Admin Trade Name Freq PRN Reason Stop Dose Admin Sodium Chloride 10 ml 12/06/19 21:57 Saline Flush FLUSH ASDIRECTED PRN Keep Vein Open Discontinued Medications Generic Name Dose Route Start Last Admin Trade Name Freq PRN Reason Stop Dose Admin Aspirin 81 mg 12/06/19 23:32 Aspirin PO 12/06/19 23:33 ONETIME ONE Iopamidol 100 ml 12/06/19 22:46 12/06/19 22:48 Isovue-300 (61%) IVPUSH 12/06/19 22:47 100 ml ONETIME ONE Administration - Radiology Interpretation Free Text/Narrative:: CT of the head per radiology from stroke code no acute findings. CTA head neck shows an abrupt cut off of the right posterior cerebral artery indicating occlusion. - Re-Assessments/Exams Free Text/Narrative Re-Assessment/Exam: 12/06/19 22:25 Due to the patient's abrupt change of dizziness blurry vision and the paresthesia to his left hand a stroke code was activated. 12/06/19 4828 the patient reports his paresthesia the left hand as well as the blurriness and dizziness is resolved on its own. Patient's NIH is [phone] called and spoke with Dr. Espinoza the stroke neurologist search engine optimization analyst at [facility]. He did have the CT and CTA films available for his review. HPI ER Course findings and concerns were relayed to him of the findings of the abrupt cutoff of the right posterior cerebral artery indicating occlusion. Per Dr. Espinoza without any changes or loss in visual gray which the patient clearly does not have this is an old occlusion that does not require any intervention other than the initiation of of Aspirin. He is aware that the patient is on dabigatran at this time. He does not need an echo as the patient is not in atrial fibrillation and is on dabigatran. His guidance is to discharge the patient home and have him follow-up with primary care. Being on aspirin daily. There is no need for transfer at this time and he refuses transfer at this time. I discussed the finding in the concerns with the patient. His NIH is still 0. He denies any of the blurriness dizziness or left hand paresthesias. We will admit the patient observation tonight for repeat neuro exam to ensure there is not any changes. He is comfortable with this plan and his questions are answered. Departure - Departure Time of Disposition: 22:50 Disposition: Refer to Observation Clinical Impression: TIA (transient ischemic attack), Occlusion of posterior cerebral artery - Discharge Information Sepsis Event Note - Focused Exam Date Exam was Performed: 12/06/19 Time Exam was Performed: 23:56 - Problem List & Annotations (1) High blood pressure SNOMED Code(s): 02110139 Code(s): I10 - ESSENTIAL (PRIMARY) HYPERTENSION Status: Acute Current Visit: No Qualifiers: Hypertension type: essential hypertension Qualified Code(s): I10 - Essential (primary) hypertension (2) Occlusion of posterior cerebral artery SNOMED Code(s): 41111285 Code(s): I66.29 - OCCLUSION AND STENOSIS OF UNSP POSTERIOR CEREBRAL ARTERY Status: Chronic Current Visit: Yes (3) TIA (transient ischemic attack) SNOMED Code(s): 574175644 Code(s): G45.9 - TRANSIENT CEREBRAL ISCHEMIC ATTACK, UNSPECIFIED Status: Acute Current Visit: Yes (4) Hyperlipidemia SNOMED Code(s): 39139062 Code(s): E78.5 - HYPERLIPIDEMIA, UNSPECIFIED Status: Acute Current Visit : Yes - Problem List Review Problem List Initiated/Reviewed/Updated: Yes - My Orders Last 24 Hours: My Active Orders 12/06/19 21:57 EKG Documentation Completion [RC] STAT Head wo Cont [CT] Stat Sodium Chloride 0.9% [Saline Flush] 10 ml FLUSH ASDIRECTED PRN Peripheral IV Insertion Adult [OM.PC] Stat 12/06/19 21:58 Ang Head [CT] Stat CTA Neck W & W/O Contrast [Ang Neck] [CT] Stat 12/06/19 23:33 Admission Status [Patient Status] [ADT] Routine - Assessment/Plan Admission H&P: Please use this note as an admission H&P Last 24 Hours: My Active Orders 12/06/19 21:57 EKG Documentation Completion [RC] STAT Head wo Cont [CT] Stat Sodium Chloride 0.9% [Saline Flush] 10 ml FLUSH ASDIRECTED PRN Peripheral IV Insertion Adult [OM.PC] Stat 12/06/19 21:58 Ang Head [CT] Stat CTA Neck W & W/O Contrast [Ang Neck] [CT] Stat 12/06/19 23:33 Admission Status [Patient Status] [ADT] Routine Assessment:: A/P TIA: Resolution of his symptoms aprox 1hr 45 mins after initiation. NO A fib on PRadaxa. Will start Aspirin per neurology. Consider MRI in the future outpatient. Neuro checks with NIH as well. 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 Start Aspirin continue Pradaxa follow up MRI outpatient through the clinic. History of A Fib with ablation. NSR now. Telemetry continue Pradaxa start aspirin. HTN: No change in blood pressure management from home meds per neurology. DM: Check HgbA1c in the morning. Hyperlipidemia: continue atorvastatin check panel in the morning. DVT: Teds short stay no edema no pharmaco anti-coag Sepsis no risk. Plan discharge tomorrow if no changes.
[2019-12-06 22:33] LABS: PTT,PARTIAL THROMBOPLSTIN TIME 27.8 SEC (25.6-32.8)
[2019-12-06 22:40] LABS: CHLORIDE,CL 103 mmol/L (98-107); SODIUM,NA 142 mmol/L (136-145)
[2019-12-06 22:42] LABS: ANION GAP 14.1 mmol/L (10-20)
[2019-12-06] MEDS ORDERED: Iopamidol 612 MG/ML 100 ML Bottle IVPUSH ONE (22:46)
[2019-12-06] MEDS ORDERED: Aspirin 81 MG Tab.Chew PO ONE (23:32)
[2019-12-07] MEDS ORDERED: Aspirin 81 MG Tab.Chew PO ONE (00:13)
[2019-12-07] MEDS ORDERED: atorvaSTATin 10 MG Tab PO STA (00:17)
[2019-12-07] MEDS ORDERED: DABIGATRAN ETEXILATE MESYLATE 150 MG PO SCH (00:30)
[2019-12-07] MEDS ORDERED: PROPRANOLOL 40 MG PO SCH (00:30)
[2019-12-07] MEDS ORDERED: Lactated Ringers 1,000 ML IV SCH (00:45)
[2019-12-07] MEDS ORDERED: Ondansetron 4 MG/2 ML SDV IV ONE (01:34)
[2019-12-07 01:54] VITALS: BP 132/96; PULSE 80
--- NOTE | 2019-12-07 02:11 | PCM.DCSUM1 ---
Discharge Summary - Hospital Course HPI Initial Comments: Patient comes emergency department today with acute onset of dizziness blurred vision and paresthesia of the left arm. Acutely at 2100 hrs. tonight the patient had a rather quick onset of dizziness that he relates as lightheadedness. The room does not spin. He does feel unsteady on his feet at time. He also complains of blurriness to his vision. No double vision. No headache. No recent falls or head trauma. He does have a history of atrial fibrillation for which she had cryoablation for. He has not had any chest pain palpitations. No weakness syncope or irregular heartbeat. No fast or slow heart palpitations. No shortness of breath or difficulty breathing. No fever no chills. He denies any abdominal pain nausea or vomiting. He does complain of some numbness to his left hand which is slowly improved. No weakness or ataxia of his upper or lower extremities. No change in the functionality of his upper or lower extremities. Diagnosis: Stroke: Yes Modified [place] Scale: Slight Disable;Unable to Carry Out Prev Act.Able to Look After Affairs Modified [place] Scale Score: 2 - Discharge Data Discharge Date: 12/07/19 Discharge Disposition: DC/Tfer to Acute Hospital 02 Condition: Fair - Referral to Home Health Primary Care Physician: Sidney Moreno MD - Discharge Diagnosis/Problem(s) (1) High blood pressure SNOMED Code(s): 80164210 ICD Code: I10 - ESSENTIAL (PRIMARY) HYPERTENSION Status: Acute Qualifiers: Hypertension type: essential hypertension Qualified Code(s): I10 - Essential (primary) hypertension (2) Occlusion of posterior cerebral artery SNOMED Code(s): 78812849 ICD Code: I66.29 - OCCLUSION AND STENOSIS OF UNSP POSTERIOR CEREBRAL ARTERY Status: Chronic (3) TIA (transient ischemic attack) SNOMED Code(s): 002713337 ICD Code: G45.9 - TRANSIENT CEREBRAL ISCHEMIC ATTACK, UNSPECIFIED Status: Acute (4) Hyperlipidemia SNOMED Code(s): 32781184 ICD Code: E78.5 - HYPERLIPIDEMIA, UNSPECIFIED Status: Acute - Patient Summary/Data Hospital Course: The patient was admitted under observation for concerns of a TIA. Have a finding of a new right posterior cerebral artery occlusion although after a rather extended conversation with the neurologist initially he felt Dr. Cardenas as he was asymptomatic after short period of time that this was old finding and chronic despite my explanation to him of no previous none stroke or visual changes in the past. I was initially guided to start him on aspirin and discharge him home although I admitted him under observation due to my concerns of the changes from his CTA of his head. He was not hypertensive. The she does have a history of atrial fibrillation for which she had cryoablation and is on chronic Pradaxa. Shortly after his admission to the floor under observation at approximately 1: 15 in the morning the patient had recurrence of the paresthesia to his left hand double vision the development of ataxia as well as nystagmus to the upper left. He was not hypertensive. He had no weakness of his extremities. His pupils are appropriate. I once again called and spoke with Dr. Cardenas who again initially was unconcerned and felt that there was no need for transfer intervention at this time. I once again reiterated my concerns for the pathology possibility of some type of ischemia or stroke. I did not feel that it was appropriate to continue to observe this patient. After much discussion I demanded that this patient be transferred and if the doctor Theresa was not willing to accept the patient I will look to the next stroke Center which would be [facility] in [place] for my concerns of this patient. Dr. Cardenas then reluctantly accepted the patient in transfer and to be seen in the ED for evaluation. I was then transfered to speak with the ER MD DR. Smith for acceptance. Shortly after I spoke with Dr. Smith the ER MD HPI ER COURSE findings and concerns were relayed to Dr. Smith he very quickly and graciously accepted this patient in transfer to be seen in the ED and will be a stroke code upon arrival to the ED at [facility]. No guidance for the direction of any management changes and to transfer him emergently per DR. Smith to the ED at [facility] for a stroke code. I discussed my concerns with the patient about the reoccurrence of his neurological changes. I have concerns for ongoing concerns of ischemia or other pathology causing his neurological changes. He was very happy and comfortable with this plan and he was transferred emergently under the guidance of Dr. Smith for further care and evaluation at [facility] to the ED for a stroke code evaluation. - Discharge Plan *PRESCRIPTION DRUG MONITORING PROGRAM REVIEWED*: Not Applicable *COPY OF PRESCRIPTION DRUG MONITORING REPORT IN PATIENT SOFIA: Not Applicable Home Medications: Home Meds Furosemide [Lasix] 60 mg PO DAILY 12/12/13 [History] Multivit,Calc,Mins/Iron/Folic [Thera-M] 1 cap PO DAILY 12/12/13 [History] Allopurinol [Zyloprim] 150 mg PO DAILY 01/25/17 [History] Clobetasol [Clobetasol 0.05%] 30 gm TOP BID 01/25/17 [History] Dabigatran Etexilate Mesylate [Pradaxa] 150 mg PO BID 01/25/17 [History] Esomeprazole Magnesium [Nexium] 20 mg PO DAILY 07/10/19 [History] Propranolol [Inderal] 40 mg PO BID 07/10/19 [History] atorvaSTATin [Lipitor] 10 mg PO BEDTIME 07/10/19 [History] Forms: Interfacility Transfer EMTALA Referrals: Sidney Moreno MD [Primary Care Provider] - - Discharge Summary/Plan Comment DC Time >30 min.: No - General Info Date of Service: 12/07/19 Admission Dx/Problem (Free Text: TIA Posterior Cerebral artery occlusion HTN Hyperlipidemia Subjective Update: I was summoned to the floor shortly after 1 AM in the morning by the nurse who is doing the admission for this observation patient with concerns of neurological changes. He developed nausea worsening dizziness double vision and the paresthesia of his left hand had returned. Is a very similar presentation that the patient had when he presented to the emergency department. - Patient Data Vitals - Most Recent: Last Vital Signs Temp 36.1 C 12/07/19 01:52 Pulse 80 12/07/19 01:52 Resp 16 12/07/19 01:52 BP 132/96 H 12/07/19 01:52 Pulse Ox 95 12/07/19 01:52 Weight - Most Recent: 90.2 kg Lab Results - Last 24 hrs: Laboratory Results - last 24 hr 12/06/19 12/06/19 12/06/19 Range/Units 22:06 22:07 22:07 WBC 9.2 (4.0-10.0) x10^3/uL RBC 4.69 (4.5-6.0) x10^6/uL Hgb 15.5 (14.0-18.0) g/dL Hct 44.2 (40.0-52.0) % MCV 94.2 H (78.0-93.0) fL MCH 33.0 H (26.0-32.0) pg MCHC 35.1 (32.0-36.0) g/dL RDW Coeff of Carine 12.0 (10.0-15.0) % Plt Count 238 (130-400) x10^3/uL Neut % (Auto) 54.2 (50.0-80.0) % Lymph % (Auto) 28.1 (25.0-50.0) % [place] % (Auto) 14.9 H (2.0-11.0) % Eos % (Auto) 2.5 (0.0-4.0) % Baso % (Auto) 0.3 (0.2-1.2) % PT 10.4 (9.5-12.3) SEC INR 1.0 L (2.0-3.5) APTT 27.8 (25.6-32.8) SEC Sodium (136-145) mmol/L Potassium (3.5-5.1) mmol/L Chloride (98-107) mmol/L Carbon Dioxide (21-32) mmol/L Anion Gap (10-20) mmol/L BUN (7-18) mg/dL Creatinine (0.70-1.30) mg/dL Est Cr Clr Drug Dosing Estimated GFR (MDRD) Glucose (74-106) mg/dL Calcium (8.5-10.1) mg/dL Corrected Calcium (8.5-10.1) mg/dL Total Bilirubin (0.2-1.0) mg/dL AST (15-37) U/L ALT (16-63) U/L Alkaline Phosphatase (46-116) U/L POC Troponin I 0.00 (0.00-0.08) ng/mL Total Protein (6.4-8.2) g/dL Albumin (3.4-5.0) g/dL Globulin Albumin/Globulin Ratio 12/06/19 Range/Units 22:07 WBC (4.0-10.0) x10^3/uL RBC (4.5-6.0) x10^6/uL Hgb (14.0-18.0) g/dL Hct (40.0-52.0) % MCV (78.0-93.0) fL MCH (26.0-32.0) pg MCHC (32.0-36.0) g/dL RDW Coeff of Carine (10.0-15.0) % Plt Count (130-400) x10^3/uL Neut % (Auto) (50.0-80.0) % Lymph % (Auto) (25.0-50.0) % [place] % (Auto) (2.0-11.0) % Eos % (Auto) (0.0-4.0) % Baso % (Auto) (0.2-1.2) % PT (9.5-12.3) SEC INR (2.0-3.5) APTT (25.6-32.8) SEC Sodium 142 (136-145) mmol/L Potassium 4.1 (3.5-5.1) mmol/L Chloride 103 (98-107) mmol/L Carbon Dioxide 29 (21-32) mmol/L Anion Gap 14.1 (10-20) mmol/L BUN 6 L (7-18) mg/dL Creatinine 0.9 (0.70-1.30) mg/dL Est Cr Clr Drug Dosing TNP Estimated GFR (MDRD) > 60 Glucose 142 H (74-106) mg/dL Calcium 10.1 (8.5-10.1) mg/dL Corrected Calcium 10.74 H (8.5-10.1) mg/dL Total Bilirubin 0.8 (0.2-1.0) mg/dL AST 23 (15-37) U/L ALT 25 (16-63) U/L Alkaline Phosphatase 111 (46-116) U/L POC Troponin I (0.00-0.08) ng/mL Total Protein 7.0 (6.4-8.2) g/dL Albumin 3.2 L (3.4-5.0) g/dL Globulin 3.8 Albumin/Globulin Ratio 0.84 Med Orders - Current: Current Medications Allopurinol (Zyloprim) 150 mg PO DAILY L[place] Aspirin (Aspirin) 81 mg PO WITHBREAKFAST LOUISA Furosemide (Lasix) 40 mg PO DAILY [place] Lactated Ringer's (Ringers, Lactated) 1,000 mls @ 125 mls/hr IV ASDIRECTED ON LICENSE OF [facility] Non-Formulary Medication (Dabigatran Etexilate Mesylate) 150 mg PO BID ON LICENSE OF [facility] Non-Formulary Medication (Esomeprazole Magnesium [Nexium]) 20 mg PO DAILY ON LICENSE OF [facility] Non-Formulary Medication (Propranolol) 40 mg PO BID ON LICENSE OF [facility] Sodium Chloride (Saline Flush) 10 ml FLUSH ASDIRECTED PRN PRN Reason: Keep Vein Open Spironolactone (Aldactone) 25 mg PO DAILY ON LICENSE OF [facility] Discontinued Medications Aspirin (Aspirin) 81 mg PO ONETIME ONE Stop: 12/06/19 23:33 Last Admin: 12/07/19 00:10 Dose: 81 mg Aspirin (Aspirin) 81 mg PO DAILY ONE Stop: 12/07/19 00:14 Last Admin: 12/07/19 01:29 Dose: Not Given Atorvastatin Calcium (Lipitor) 10 mg PO NOW STA Stop: 12/07/19 00:18 Last Admin: 12/07/19 01:28 Dose: 10 mg Iopamidol (Isovue-300 (61%)) 100 ml IVPUSH ONETIME ONE Stop: 12/06/19 22:47 Last Admin: 12/06/19 22:48 Dose: 100 ml Ondansetron HCl (Zofran) 4 mg IV ONETIME ONE Stop: 12/07/19 01:35 Last Admin: 12/07/19 01:44 Dose: 4 mg - Exam General: Reports: Alert, Oriented HEENT: Reports: Pupils Equal, Pupils Reactive, EOMI. Denies: Scleral Icterus Neck: Reports: Supple Lungs: Reports: Clear to Auscultation, Normal Respiratory Effort Cardiovascular: Reports: Regular Rate, Regular Rhythm GI/Abdominal Exam: Normal Bowel Sounds, Soft, Non-Tender (Male) Exam: Deferred Rectal (Males) Exam: Deferred Back Exam: Reports: Normal Inspection, Full Range of Motion Extremities: Normal Inspection, Normal Range of Motion, No Pedal Edema, Normal Capillary Refill Skin: Reports: Warm, Dry, Intact, Cool Neurological: Reports: Normal Speech. Denies: No New Focal Deficit (The patient had double vision. He had the development of horizontal nystagmus primarily up into the left. The rest of his cranial nerves are intact. He also developed some ataxia of the left hand as well. His strength is 5/5 and equal to all extremities. There is no pronator drift. His speech is clear and articulate.) Psy/Mental Status: Reports: Alert, Normal Affect, Normal Mood
--- NOTE | 2019-12-07 07:52 | CT ---
[id number] CT/CT Head WO IV; [id number] CT/CTA Head Neck EXAM: CT Head WO IV, CTA Head Neck CLINICAL DATA: DIZZINESS, BLURRY VISION, STROKE CODE COMPARISON STUDY: CT head from June 2019. FINDINGS: No intracranial hemorrhage, extra-axial fluid collection, or mass. No hydrocephalus. Mild to moderate changes of chronic small vessel disease throughout both cerebral hemispheres. CT angiography: Abrupt cut off of the right posterior cerebral artery in the T1 segment approximate 7 mm distal from the basilar bifurcation. 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 [place] is otherwise patent. 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 Mild amount of carotid atherosclerosis setting on the bifurcations bilaterally. Stenosis is less than 50%. Carotid arteries are otherwise unremarkable. Vertebrobasilar system is slightly left-sided dominant. No dissection or occlusion. Other findings: Mild emphysematous changes in the lung apices. Superior mediastinum is clear. Parotid, thyroid, and submandibular glands are unremarkable. Reversal of the normal cervical lordosis with moderate to advanced changes of cervical spondylosis, most prominent at C3-4 through C5-6. 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 No acute parenchymal change identified. David Alfonso MD 12/07/19 0758 Thank you for allowing us to participate in the care of your patient.
[2019-12-07] MEDS ORDERED: Non-Formulary Medication 1 Each (Esomeprazole Magnesium [Nexium] 20 MG) PO SCH (08:00)
[2019-12-07] MEDS ORDERED: Allopurinol 300 MG Tab PO SCH (08:00)
[2019-12-07] MEDS ORDERED: Furosemide 20 MG Tab PO SCH (08:00)
[2019-12-07] MEDS ORDERED: Aspirin 81 MG Tab.Chew PO SCH (08:00)
[2019-12-07] MEDS ORDERED: Spironolactone 25 MG Tab PO SCH (08:00)
== END 2019-12-07 02:30 | disposition short-term general hospital (02) ==
LOC: VM.ED 21:49 → VM.MS 23:50
PROVIDERS: ADMIT Nurse Practitioner Family; ATTEND Nurse Practitioner Family
DX: I66.21 Occlusion and stenosis of right posterior cerebral artery (principal); G45.9 Transient cerebral ischemic attack, unspecified; I10 Essential (primary) hypertension; E78.00 Pure hypercholesterolemia, unspecified; J44.9 Chronic obstructive pulmonary disease, unspecified; E66.9 Obesity, unspecified; E78.5 Hyperlipidemia, unspecified; E11.9 Type 2 diabetes mellitus without complications; Z91.048 Other nonmedicinal substance allergy status; Z79.899 Other long term (current) drug therapy; Z68.29 Body mass index [BMI] 29.0-29.9, adult
CPT/HCPCS: 70450; 70496; 70498; 80053; 84484; 85025; 85610; 85730; 93005; 99285; A9270; J2405; J7120; Q9967; 93010; 99217; 99220

== ENCOUNTER 2020-02-09 12:20 | Emergency (ER) | payer MEDICARE, OTHER ==
--- NOTE | 2020-02-09 12:44 | EDM.PDOC ---
ED HPI GENERAL MEDICAL PROBLEM - General Chief Complaint: Neuro Symptoms/Deficits Stated Complaint: NUMBNESS IN HANDS AND FACE Time Seen by Provider: 02/09/20 12:30 Source of Information: Reports: Patient History Limitations: Reports: No Limitations - History of Present Illness INITIAL COMMENTS - FREE TEXT/NARRATIVE: Patient states this morning approximate 2 to 3 hours ago started feeling some numbness and tingling on the right side of his face along with the right side of his tongue. He also states that on the right hand the thumb first finger second finger are numb as well but he noticed them after getting up this morning. He has no other complaints at this time He recently stopped taking his Eliquis of last week due to a colonoscopy this . 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 for 5 days where he was released with no complications and no issues. He has no other complaints at this time Duration: Hour(s): Location: Reports: Face, Upper Extremity, Right Improves with: Reports: None Worsens with: Reports: None Associated Symptoms: Reports: No Other Symptoms - Related Data Allergies Allergy/AdvReac Type Severity Reaction Status Date / Time hay fever Allergy Itching Uncoded 02/09/20 12:36 Home Meds: Home Meds Furosemide [Lasix] 20 mg PO DAILY 12/12/13 [History] Multivit,Calc,Mins/Iron/Folic [Thera-M] 1 cap PO DAILY 12/12/13 [History] Allopurinol [Zyloprim] 150 mg PO DAILY 01/25/17 [History] Clobetasol [Clobetasol 0.05%] 30 gm TOP BID 01/25/17 [History] Esomeprazole Magnesium [Nexium] 20 mg PO DAILY 07/10/19 [History] Propranolol [Inderal] 10 mg PO BID 07/10/19 [History] atorvaSTATin [Lipitor] 40 mg PO BEDTIME 07/10/19 [History] Apixaban [Eliquis] 5 mg PO BID 02/09/20 [History] Past Medical History HEENT History: Reports: Allergic Rhinitis Other HEENT History: deviated nasal septum. Full dentures Cardiovascular History: Reports: Afib, High Cholesterol, Hypertension Respiratory History: Reports: COPD, Sleep Apnea Gastrointestinal History: Reports: Colon Polyp, Diverticulosis, GERD Other Gastrointestinal History: Elevated liver enzymes Genitourinary History: Reports: Other (See Below) Other Genitourinary History: ED Musculoskeletal History: Reports: Arthritis, Back Pain, Chronic, Gout, Osteoarthritis Other Musculoskeletal History: DJD Neurological History: Reports: CVA, Other (See Below) Other Neuro History: tremor. mortons neuroma Psychiatric History: Reports: Addiction Other Psychiatric History: Alcohol Addiction Endocrine/Metabolic History: Reports: Diabetes, Type II, Obesity/BMI 30+ Other Endocrine/Metabolic History: Gynecomastatia. Acute pancreatitis Hematologic History: Reports: None Immunologic History: Reports: None Oncologic (Cancer) History: Reports: Prostate Dermatologic History: Reports: Eczema - Past Surgical History HEENT Surgical History: Reports: Tonsillectomy Cardiovascular Surgical History: Reports: Cardiac Ablation, Other (See Below) Other Cardiovascular Surgeries/Procedures: cardioversion x3 GI Surgical History: Reports: Cholecystectomy, Colonoscopy Male Surgical History: Reports: TURBT-Transurethral Resection of Bladder Tumor Musculoskeletal Surgical History: Reports: Other (See Below) Other Musculoskeletal Surgeries/Procedures:: foot sx Oncologic Surgical History: Reports: None Dermatological Surgical History: Reports: None Social & Family History - Caffeine Use Caffeine Use: Reports: None ED ROS GENERAL - Review of Systems Review Of Systems: See Below Constitutional: Reports: No Symptoms. Denies: Fever, Chills, Malaise, Weakness, Fatigue HEENT: Reports: No Symptoms Respiratory: Reports: No Symptoms Cardiovascular: Reports: No Symptoms Endocrine: Reports: No Symptoms GI/Abdominal: Reports: No Symptoms : Reports: No Symptoms Musculoskeletal: Reports: No Symptoms Skin: Reports: No Symptoms Neurological: Reports: Numbness, Tingling. Denies: Confusion, Dizziness, Headache, Paresthesia, Pre-Existing Deficit, Seizure, Syncope, Tremors, Trouble Speaking, Weakness Psychiatric: Reports: No Symptoms Hematologic/Lymphatic: Reports: No Symptoms Immunologic: Reports: No Symptoms ED EXAM, NEURO - Physical Exam Exam: See Below Exam Limited By: No Limitations General Appearance: Alert, WD/WN, No Apparent Distress Eye Exam: Bilateral Eye: EOMI, PERRL Ears: Normal External Exam, Normal Canal, Hearing Grossly Normal, Normal TMs Nose: Normal Inspection, Normal Mucosa, No Blood Throat/Mouth: Normal Inspection, Normal Lips, Normal Teeth, Normal Gums, Normal Oropharynx, Normal Voice, No Airway Compromise Head Exam: Atraumatic, Normocephalic Neck: Normal Inspection, Supple, Non-Tender, Full Range of Motion Respiratory/Chest: No Respiratory Distress, Lungs Clear, Normal Breath Sounds, No Accessory Muscle Use, Chest Non-Tender Cardiovascular: Normal Peripheral Pulses, Regular Rate, Rhythm, No Edema, No Gallop, No JVD GI/Abdominal: Normal Bowel Sounds, Soft, Non-Tender, No Organomegaly, No Distention Neurological: Alert, Normal Mood/Affect, Normal Dorsiflexion, CN II-XII Intact, Normal Plantar Flexion, Normal Gait, Normal Reflexes, Oriented x 3, Abnormal Light Touch, Other (Patient has decreased sensation to the right T2-T3 area of trigeminal nerve cranial nerves II through XII are intact he has normal masseter muscle strength there is no tongue deviation no pronator sway strength with opening his eyes bilateral). 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 bilateral 5 of 5 upper extremity lower extremity strength) Psychiatric: Normal Affect, Normal Mood Skin Exam: Warm, Dry, Intact, Normal Color, No Rash Course - Vital Signs Text/Narrative:: Secondary to the patient's neurological exam was within normal limits no acute findings I called [facility] at 1240 for consult with neuro they called back at 1305 discussed with neurology she recommended working up for embolic stroke secondary to he was off his anticoagulations with labs head CT and then MRI and at that time 1 call transfer to [facility] through for neuro stroke per DR Chau Spoke with DR Rhoades neurologist stroke on-call does not recommend TPA at this time recommend restarting his Eliquis p.o. transferred to [place] for MRI and further work-up through the hospitalist service Per radiologist at 1341 no acute findings on head CT [facility] 1 call called for hospitalist for transfer spoke with Dr. Zarate will accept transfer patient as soon as bed is available at 1346 Last Recorded V/S: Last Vital Signs Temp 36.6 C 02/09/20 14:00 Pulse 88 02/09/20 14:00 Resp 18 02/09/20 14:00 BP 128/65 02/09/20 14:00 Pulse Ox 98 02/09/20 14:00 - Orders/Labs/Meds Labs: Laboratory Tests 02/09/20 02/09/2020 Range/Units 13:27 13:27 13:27 WBC 7.2 (4.0-10.0) x10^3/uL RBC 4.74 (4.5-6.0) x10^6/uL Hgb 15.6 (14.0-18.0) g/dL Hct 44.8 (40.0-52.0) % MCV 94.5 H (78.0-93.0) fL MCH 32.9 H (26.0-32.0) pg MCHC 34.8 (32.0-36.0) g/dL RDW Coeff of [place] 12.6 (10.0-15.0) % Plt Count 216 (130-400) x10^3/uL Neut % (Auto) 52.8 (50.0-80.0) % Lymph % (Auto) 28.8 (25.0-50.0) % [place] % (Auto) 15.2 H (2.0-11.0) % Eos % (Auto) 2.9 (0.0-4.0) % Baso % (Auto) 0.3 (0.2-1.2) % PT 10.4 (9.5-12.3) SEC INR 1.0 L (2.0-3.5) Sodium 141 (136-145) mmol/L Potassium 3.6 (3.5-5.1) mmol/L Chloride 104 (98-107) mmol/L Carbon Dioxide 27 (21-32) mmol/L Anion Gap 13.6 (10-20) mmol/L BUN 8 (7-18) mg/dL Creatinine 1.1 (0.70-1.30) mg/dL Est Cr Clr Drug Dosing TNP Estimated GFR (MDRD) > 60 Glucose 175 H (74-106) mg/dL Calcium 9.2 (8.5-10.1) mg/dL Meds: Medications Discontinued Medications Generic Name Dose Route Start Last Admin Trade Name Freq PRN Reason Stop Dose Admin Apixaban 5 mg 02/09/20 13:46 02/09/20 13:55 Eliquis PO 02/09/20 13:47 5 mg ONETIME ONE Administration Departure - Departure Time of Disposition: 14:30 Disposition: Home, Self-Care 01 Condition: Good Clinical Impression: Sensory deficit, right, History of embolic stroke - Discharge Information *PRESCRIPTION DRUG MONITORING PROGRAM REVIEWED*: No *COPY OF PRESCRIPTION DRUG MONITORING REPORT IN PATIENT SOFIA: No Referrals: Sidney Moreno MD [Primary Care Provider] - Forms: ED Department Discharge, Interfacility Transfer ANASTASIA Sepsis Event Note (ED) - Evaluation Sepsis Screening Result: No Definite Risk - Focused Exam Vital Signs: Vital Signs Temp Pulse Resp BP Pulse Ox 02/09/20 14:00 36.6 C 88 18 128/65 98 02/09/20 12:25 36.6 C 61 16 135/68 98 - Problem List & Annotations (1) History of embolic stroke SNOMED Code(s): 70356412928983536 Code(s): Z86.73 - PRSNL HX OF TIA (TIA), AND CEREB INFRC W/O RESID DEFICITS Status: Acute (2) Sensory deficit, right SNOMED Code(s): 652889480 Code(s): R44.9 - UNSP SYMPTOMS AND SIGNS W GENERAL SENSATIONS AND PERCEPTIONS Status: Acute
--- NOTE | 2020-02-09 13:44 | CT ---
[id number] CT/CT Head Stroke Protocol Exam: CT Head Stroke Protocol Clinical Data: NEUROLOGIC DEFICIT COMPARISON: CORRELATION IS MADE WITH DECEMBER 06, 2019 FINDINGS: There is no mass or mass effect There is no hemorrhage or hydrocephalus There are no extra-axial fluid collections There is no hyperdense middle cerebral artery sign Report called at time of dictation IMPRESSION: NEGATIVE PLAIN CT BRAIN ASPECT SCORE 10 Nilesh Huston MD 02/09/20 1584 Thank you for allowing us to participate in the care of your patient.
[2020-02-09 13:45] LABS: CHLORIDE,CL 104 mmol/L (98-107); SODIUM,NA 141 mmol/L (136-145)
[2020-02-09] MEDS ORDERED: Apixaban 2.5 MG Tab PO ONE (13:46)
[2020-02-09 13:47] LABS: ANION GAP 13.6 mmol/L (10-20)
[2020-02-09 14:01] VITALS: BP 128/65; PULSE 88
== END 2020-02-09 14:34 | disposition home or self-care (01) ==
LOC: VM.ED 12:20
DX: R44.9 Unspecified symptoms and signs involving general sensations and perceptions (principal); J44.9 Chronic obstructive pulmonary disease, unspecified; I10 Essential (primary) hypertension; E78.00 Pure hypercholesterolemia, unspecified; I48.91 Unspecified atrial fibrillation; K21.9 Gastro-esophageal reflux disease without esophagitis; E11.9 Type 2 diabetes mellitus without complications; E66.9 Obesity, unspecified; Z86.73 Personal history of transient ischemic attack (TIA), and cerebral infarction without residual deficits; Z91.048 Other nonmedicinal substance allergy status; Z79.899 Other long term (current) drug therapy
CPT/HCPCS: 36415; 70450; 80048; 85025; 85610; 99284-GF; 99285-25; A9270-GY

== ENCOUNTER 2020-04-08 06:56 | Day surgery (SDC) | payer MEDICARE, OTHER ==
[~2020-04-08 06:56] MED LIST changes: +Lactated Ringers 1,000 ML IV SCH; -Sodium Chloride 0.9% 10 ML Syringe FLUSH PRN
[2020-04-08] MEDS ORDERED: fentaNYL 100 MCG/2 ML SDV ONE (08:03)
[2020-04-08] MEDS ORDERED: Propofol 200 MG/20 ML SDV ONE ×2 (08:03→08:17)
[2020-04-08 09:00] VITALS: BP 114/60; PULSE 50
--- NOTE | 2020-04-08 13:10 | OR ---
DATE OF SURGERY: 04/08/2020. REFERRING PROVIDER: Sidney Moreno MD PRE-OPERATIVE DIAGNOSES: 1. History of colon polyps. Last colonoscopy was about [address] Franklin. He had 7 polyps removed that time and 7 polyps removed 3 years prior to that. 2. Positive family history of colon cancer in father. 3. Chronic atrial fibrillation with history of stroke. The patient is on Eliquis, but has been holding now for 4 doses. POST-OPERATIVE DIAGNOSES: 1. Moderate diverticulosis involving the right colon and sigmoid colon. 2. Otherwise normal colon and normal distal ileum. PROCEDURE: Colonoscopy. SURGEON: Ravindra Melendez M.D. ANESTHESIA: Monitored anesthesia care. BOWEL PREP: Good. Jalen is a 69-year-old male who was brought to the endoscopy suite after discussing risks and benefits of the procedure. Informed consent was obtained for conscious sedation and colonoscopy with or without biopsy and/or polypectomy. We also discussed possibility of missed lesions. Pre-procedure exam was unremarkable. IV, oxygen, and monitors were placed. The patient was placed in the left lateral decubitus position. Sedation was administered and a digital rectal exam was performed and unremarkable. Colonoscope was passed into the rectum and slowly advanced all the way to the cecum. Cecum was viewed and photographed. Ileocecal valve was intubated and distal ileum was normal in appearance. The colonoscope was slowly withdrawn and the mucosa was closed observed in a direct circumferential manner. The ascending colon was remarkable for some mild diverticulosis. The transverse colon was unremarkable. The descending colon was unremarkable. The sigmoid colon was remarkable for moderate diverticulosis. Retroflexion was performed and rectal mucosa was unremarkable. Scope was removed. The patient tolerated the procedure well. The patient was monitored until that baseline status. Discharge instructions were reviewed and the patient was discharged in good condition. COMPLICATIONS: None. TOTAL TIME: 13 minutes. ESTIMATED BLOOD LOSS: None. RECOMMENDATIONS/FOLLOW-UP: Given the positive personal history of polyps as well as positive family history of colon cancer, I would recommend repeating colonoscopy again in 5 years. Okay for the patient to resume his Eliquis tonight. I would like to kindly thank Sidney Moreno for this referral. DMB: 04/08/2020 09:32:02 MODL: 04/08/2020 12:37:19 /[id number]
== END 2020-04-08 09:45 | disposition home or self-care (01) ==
LOC: VM.SDS 06:56
PROVIDERS: ATTEND Family Medicine
DX: Z12.11 Encounter for screening for malignant neoplasm of colon (principal); K57.30 Diverticulosis of large intestine without perforation or abscess without bleeding; I10 Essential (primary) hypertension; E11.9 Type 2 diabetes mellitus without complications; I48.0 Paroxysmal atrial fibrillation; E66.9 Obesity, unspecified; E78.5 Hyperlipidemia, unspecified; Z01.812 Encounter for preprocedural laboratory examination; Z20.828 Contact with and (suspected) exposure to other viral communicable diseases; Z87.891 Personal history of nicotine dependence; Z79.01 Long term (current) use of anticoagulants; Z86.73 Personal history of transient ischemic attack (TIA), and cerebral infarction without residual deficits; Z86.010 Personal history of colon polyps; Z80.0 Family history of malignant neoplasm of digestive organs; Z79.899 Other long term (current) drug therapy; Z68.31 Body mass index [BMI] 31.0-31.9, adult; Z98.890 Other specified postprocedural states
CPT/HCPCS: 00811; J2704; J3010; J7120; U0002

== ENCOUNTER 2021-12-19 14:18 | Inpatient (IN) | payer MEDICARE, MEDICAID ==
[2021-12-19] MEDS ORDERED: Sodium Chloride 0.9% 10 ML Syringe FLUSH PRN (15:23)
[2021-12-19] MEDS ORDERED: cefTRIAXone 1 GM Vial IVPUSH ONE (16:03)
[2021-12-19 16:14] LABS: ANION GAP 16.2 mmol/L (5-15)
[2021-12-19 17:43] LABS: CORONAVIRUS COVID-19 NAA NEGATIVE (NEGATIVE)
[2021-12-19] MEDS ORDERED: Ondansetron 4 MG Tab.DIS PO PRN (17:52)
[2021-12-19] MEDS ORDERED: Acetaminophen 325 MG Tab PO PRN (17:52)
[2021-12-19] MEDS ORDERED: Potassium Chloride 20 MEQ Tab.ER PO ONE (18:02)
[2021-12-19] MEDS ORDERED: Sodium Chloride 0.9% 1,000 ML IV SCH (18:15)
[2021-12-19] MEDS ORDERED: ALOE VERA TP PRN (18:16)
[2021-12-19] MEDS ORDERED: TROLAMINE SALICYLATE TP PRN (18:16)
[2021-12-19] MEDS ORDERED: Clobetasol 0.05% Crm 30 GM Tube TOP PRN (18:16)
[2021-12-19] MEDS ORDERED: Furosemide 20 MG Tab PO SCH (21:00)
[2021-12-19] MEDS: Propranolol 20 MG Tab PO SCH (21:12)
[2021-12-19] MEDS: atorvaSTATin 10 MG Tab PO SCH (21:13)
[2021-12-19] MEDS: Apixaban 2.5 MG Tab PO SCH (21:13)
[2021-12-20 06:52] LABS: CHLORIDE,CL 104 mmol/L (98-107); SODIUM,NA 142 mmol/L (136-145)
[2021-12-20 06:54] LABS: ANION GAP 12.3 mmol/L (5-15)
[2021-12-20] MEDS: Apixaban 2.5 MG Tab PO SCH ×2 (08:17→19:59)
[2021-12-20] MEDS: Propranolol 20 MG Tab PO SCH ×2 (08:17→19:59)
[2021-12-20] MEDS: Furosemide 80 MG Tab PO SCH (08:17)
[2021-12-20] MEDS: Allopurinol 300 MG Tab PO SCH (08:18)
[2021-12-20] MEDS ORDERED: Sodium Chloride 0.9% 500 ML IV ONE (09:45)
[2021-12-20] MEDS ORDERED: Sodium Chloride 0.9% 1,000 ML IV SCH (10:15)
[2021-12-20] MEDS: Potassium Chloride Riders 20 MEQ in Premix Bag 1 BAG IV SCH ×2 (11:05→13:19)
[2021-12-20] MEDS ORDERED: cefTRIAXone 1 GM Vial IM ONE (12:00)
[2021-12-20] MEDS: cefTRIAXone 1 GM Vial IVPUSH SCH (13:31)
[2021-12-20] MEDS: atorvaSTATin 10 MG Tab PO SCH (19:59)
[2021-12-21 06:42] VITALS: BP 128/63; PULSE 74
[2021-12-21 06:51] LABS: CHLORIDE,CL 106 mmol/L (98-107); SODIUM,NA 142 mmol/L (136-145)
[2021-12-21 06:54] LABS: ANION GAP 12.5 mmol/L (5-15)
[2021-12-21 08:07] LABS: BORDETELLA PARAPERT IS1001 Not Detected (Not Detected)
[2021-12-21] MEDS: Apixaban 2.5 MG Tab PO SCH (08:08)
[2021-12-21] MEDS: Furosemide 80 MG Tab PO SCH (08:08)
[2021-12-21] MEDS: Allopurinol 300 MG Tab PO SCH (08:09)
[2021-12-21] MEDS: Propranolol 20 MG Tab PO SCH (08:09)
[2021-12-21] MEDS: cefTRIAXone 1 GM Vial IVPUSH SCH (08:10)
== END 2021-12-21 10:33 | disposition home or self-care (01) | DRG 871 ==
LOC: VM.ED 14:18 → VM.MS 17:02
PROVIDERS: ADMIT Family Medicine; ATTEND Family Medicine
DX: A41.9 Sepsis, unspecified organism (principal); E87.2 Acidosis; D72.829 Elevated white blood cell count, unspecified; J30.9 Allergic rhinitis, unspecified; I48.91 Unspecified atrial fibrillation; J96.01 Acute respiratory failure with hypoxia; I10 Essential (primary) hypertension; J18.9 Pneumonia, unspecified organism; I50.32 Chronic diastolic (congestive) heart failure; E87.6 Hypokalemia; Z79.899 Other long term (current) drug therapy; Z79.01 Long term (current) use of anticoagulants; Z20.822 Contact with and (suspected) exposure to COVID-19; I48.0 Paroxysmal atrial fibrillation; Z86.73 Personal history of transient ischemic attack (TIA), and cerebral infarction without residual deficits; Z88.8 Allergy status to other drugs, medicaments and biological substances; J30.1 Allergic rhinitis due to pollen; I11.0 Hypertensive heart disease with heart failure; E11.9 Type 2 diabetes mellitus without complications; E66.9 Obesity, unspecified; G47.30 Sleep apnea, unspecified; Z85.46 Personal history of malignant neoplasm of prostate; Z88.6 Allergy status to analgesic agent; Z91.09 Other allergy status, other than to drugs and biological substances; M10.9 Gout, unspecified; J34.2 Deviated nasal septum; E78.00 Pure hypercholesterolemia, unspecified; Z86.010 Personal history of colon polyps; K57.90 Diverticulosis of intestine, part unspecified, without perforation or abscess without bleeding; M19.90 Unspecified osteoarthritis, unspecified site; G57.60 Lesion of plantar nerve, unspecified lower limb; Z90.89 Acquired absence of other organs; Z90.49 Acquired absence of other specified parts of digestive tract; Z98.890 Other specified postprocedural states; Z68.29 Body mass index [BMI] 29.0-29.9, adult
CPT/HCPCS: 0240U; 36415; 71045; 80048; 80053; 81003; 83605; 83880; 84145; 84484; 85025; 85379; 85610; 87040; 87486; 87581; 87633; 87798; 93005; 93010; 94760; 96374; 99284; 99285-25; A9270-GY; J0696; J3480; J7030

== ENCOUNTER 2023-01-03 11:12 | Inpatient (IN) | payer MEDICARE, MEDICAID ==
[2023-01-03] MEDS ORDERED: Sodium Chloride 0.9% 10 ML Syringe FLUSH PRN (11:31)
[2023-01-03 11:43] LABS: BASOPHILS PERCENT AUTO 0.1 % (0.2-1.2); EOSINOPHILS ABSOLUTE AUTO 0.1 x10^3/uL (0.0-0.5); EOSINOPHILS PERCENT AUTO 0.4 % (0.0-4.0); HEMATOCRIT 46.2 % (40.0-52.0); HEMOGLOBIN 16.1 g/dL (14.0-18.0); IMMATURE GRAN ABSOLUTE AUTO 0.03 x10^3/uL (0.00-0.07); LYMPHOCYTES ABSOLUTE AUTO 1.1 x10^3/uL (1.0-4.8); LYMPHOCYTES PERCENT AUTO 7.1 % (25.0-50.0); MEAN CORPUSCULAR HEMOGLOBIN 33.1 pg (26.0-32.0); MEAN CORPUSCULAR HGB CONC 34.8 g/dL (32.0-36.0); MEAN CORPUSCULAR VOLUME 95.1 fL (78.0-93.0); MONOCYTES ABSOLUTE AUTO 0.9 x10^3/uL (0.0-0.8); MONOCYTES PERCENT AUTO 5.8 % (2.0-11.0); NEUTROPHILS PERCENT AUTO 86.4 % (50.0-80.0); PLATELET COUNT,PLT 168 x10^3/uL (130-400); RED BLOOD CELL COUNT 4.86 x10^6/uL (4.5-6.0); WHITE BLOOD CELL COUNT,WBC 16.2 x10^3/uL (4.0-10.0)
[2023-01-03 11:48] LABS: APPEARANCE,URINE CLEAR (CLEAR); BILIRUBIN,URINE NEGATIVE (NEGATIVE); COLOR,URINE LIGHT YELLOW (YELLOW); GLUCOSE,URINE 500 mg/dL (NEGATIVE); KETONES,URINE NEGATIVE (NEGATIVE); LEUKOCYTE ESTERASE,URINE NEGATIVE (NEGATIVE); NITRITE,URINE NEGATIVE (NEGATIVE); OCCULT BLOOD,URINE TRACE-INTACT (NEGATIVE); PROTEIN,URINE NEGATIVE (NEGATIVE); UROBILINOGEN,URINE 0.2 EU/dL (0.2)
[2023-01-03 11:49] LABS: BACTERIA,URINE RARE /HPF (NOT SEEN); MUCUS,URINE RARE /LPF (NOT SEEN); RBC,URINE 0-5 /HPF (NOT SEEN); SQUAMOUS EPITHELIAL CELLS,UR NOT SEEN /HPF (NOT SEEN); WBC,URINE 0-5 /HPF (NOT SEEN)
[2023-01-03 12:08] LABS: LACTIC ACID 2.6 mmol/L (0.4-2.0)
[2023-01-03 12:11] LABS: A/G RATIO 0.85; ALANINE AMINOTRANSFERASE,ALT 30 U/L (16-63); ALBUMIN 3.3 g/dL (3.4-5.0); ALKALINE PHOSPHATASE 97 U/L (46-116); ASPARTATE AMNIOTRANSFERASE,AST 27 U/L (15-37); BILIRUBIN TOTAL 1.7 mg/dL (0.2-1.0); BLOOD UREA NITROGEN,BUN 7 mg/dL (7-18); C-REACTIVE PROTEIN 1.4 mg/dL (<=0.9); CALCIUM 9.8 mg/dL (8.5-10.1); CARBON DIOXIDE,CO2 26 mmol/L (21-32); CHLORIDE,CL 107 mmol/L (98-107); GLUCOSE RANDOM 162 mg/dL (70-99); POTASSIUM,K 4.2 mmol/L (3.5-5.1); PRO B-TYPE NATRIUR PEPT,BNPPRO 282 pg/mL (<=125); PROTEIN TOTAL,TP 7.2 g/dL (6.4-8.2); SODIUM,NA 146 mmol/L (136-145); TSH ULTRASENSITIVE 3.001 uIU/mL (0.358-3.74)
[2023-01-03 12:14] LABS: ANION GAP 17.2 mmol/L (5-15); ESTIMATED GFR 80 mL/min (>=60)
[2023-01-03] MEDS ORDERED: Sodium Chloride 0.9% 1,000 ML IV SCH (12:15)
[2023-01-03] MEDS ORDERED: cefTRIAXone 1 GM Vial IVPUSH ONE (12:16)
[2023-01-03 12:26] LABS: CORONAVIRUS COVID-19 NAA NEGATIVE (NEGATIVE); INFLUENZA A NAA NEGATIVE (NEGATIVE); INFLUENZA B NAA NEGATIVE (NEGATIVE); RESPIRATORY SYNCYTIAL VIR NAA NEGATIVE (NEGATIVE)
[2023-01-03] MEDS ORDERED: Azithromycin 500 MG in Sodium Chloride 0.9% 250 ML IV ONE (12:37)
[2023-01-03] MEDS ORDERED: Acetaminophen 325 MG Tab PO PRN (15:11)
[2023-01-03] MEDS ORDERED: Ondansetron 4 MG Tab.DIS PO PRN (15:11)
[2023-01-03] MEDS ORDERED: Acetaminophen 650 MG Tab.ER PO PRN (15:16)
[2023-01-03 16:24] LABS: LACTIC ACID 1.5 mmol/L (0.4-2.0)
[2023-01-03] MEDS: Furosemide 20 MG Tab PO SCH (18:10)
[2023-01-03] MEDS: atorvaSTATin 40 MG Tab PO SCH (20:52)
[2023-01-03] MEDS: Propranolol 20 MG Tab PO SCH (20:52)
[2023-01-03] MEDS: Apixaban 2.5 MG Tab PO SCH (20:52)
[2023-01-04 07:05] LABS: BASOPHILS PERCENT AUTO 0.1 % (0.2-1.2); EOSINOPHILS ABSOLUTE AUTO 0.2 x10^3/uL (0.0-0.5); HEMOGLOBIN 14.3 g/dL (14.0-18.0); IMMATURE GRAN ABSOLUTE AUTO 0.04 x10^3/uL (0.00-0.07); LYMPHOCYTES PERCENT AUTO 12.8 % (25.0-50.0); MEAN CORPUSCULAR HEMOGLOBIN 33.2 pg (26.0-32.0); MEAN CORPUSCULAR VOLUME 97.4 fL (78.0-93.0); MONOCYTES PERCENT AUTO 6.6 % (2.0-11.0); NEUTROPHILS ABSOLUTE AUTO 12.3 x10^3/uL (1.8-7.7); NEUTROPHILS PERCENT AUTO 79.2 % (50.0-80.0); PLATELET COUNT,PLT 163 x10^3/uL (130-400); RED BLOOD CELL COUNT 4.31 x10^6/uL (4.5-6.0); WHITE BLOOD CELL COUNT,WBC 15.6 x10^3/uL (4.0-10.0)
[2023-01-04 07:53] LABS: CALCIUM 9.5 mg/dL (8.5-10.1); CREATININE 0.9 mg/dL (0.70-1.30); EST CRCL DRUG DOSING (CG) 72.83 mL/min
[2023-01-04] MEDS: Furosemide 20 MG Tab PO SCH ×2 (09:04→13:53)
[2023-01-04] MEDS: Azithromycin 500 MG in Sodium Chloride 0.9% 250 ML IV SCH (09:04)
[2023-01-04] MEDS: cefTRIAXone 1 GM Vial IVPUSH SCH (09:04)
[2023-01-04] MEDS: Pantoprazole 20 MG Tab, Delayed Release PO SCH (09:04)
[2023-01-04] MEDS: Propranolol 20 MG Tab PO SCH ×2 (09:05→20:03)
[2023-01-04] MEDS: Allopurinol 300 MG Tab PO SCH (09:05)
[2023-01-04] MEDS: Apixaban 2.5 MG Tab PO SCH ×2 (09:06→20:03)
[2023-01-04 09:19] LABS: ANION GAP 9.7 mmol/L (5-15); POTASSIUM,K 3.7 mmol/L (3.5-5.1)
[2023-01-04] MEDS: atorvaSTATin 40 MG Tab PO SCH (20:03)
[2023-01-05 07:54] LABS: BASOPHILS PERCENT AUTO 0.2 % (0.2-1.2); EOSINOPHILS ABSOLUTE AUTO 0.2 x10^3/uL (0.0-0.5); EOSINOPHILS PERCENT AUTO 2.2 % (0.0-4.0); HEMATOCRIT 43.8 % (40.0-52.0); HEMOGLOBIN 14.8 g/dL (14.0-18.0); IMMATURE GRAN ABSOLUTE AUTO 0.03 x10^3/uL (0.00-0.07); LYMPHOCYTES ABSOLUTE AUTO 1.7 x10^3/uL (1.0-4.8); LYMPHOCYTES PERCENT AUTO 19.6 % (25.0-50.0); MEAN CORPUSCULAR HGB CONC 33.8 g/dL (32.0-36.0); MEAN CORPUSCULAR VOLUME 97.6 fL (78.0-93.0); MONOCYTES ABSOLUTE AUTO 0.8 x10^3/uL (0.0-0.8); MONOCYTES PERCENT AUTO 9.2 % (2.0-11.0); NEUTROPHILS ABSOLUTE AUTO 6.1 x10^3/uL (1.8-7.7); NEUTROPHILS PERCENT AUTO 68.5 % (50.0-80.0); PLATELET COUNT,PLT 156 x10^3/uL (130-400); RED BLOOD CELL COUNT 4.49 x10^6/uL (4.5-6.0); WHITE BLOOD CELL COUNT,WBC 8.8 x10^3/uL (4.0-10.0)
[2023-01-05 07:56] VITALS: BP 123/69
[2023-01-05 08:08] LABS: CALCIUM 9.8 mg/dL (8.5-10.1); CREATININE 0.9 mg/dL (0.70-1.30); EST CRCL DRUG DOSING (CG) 72.83 mL/min; POTASSIUM,K 3.6 mmol/L (3.5-5.1)
[2023-01-05 08:11] LABS: ANION GAP 12.6 mmol/L (5-15)
[2023-01-05] MEDS: Allopurinol 300 MG Tab PO SCH (08:33)
[2023-01-05] MEDS: Pantoprazole 20 MG Tab, Delayed Release PO SCH (08:33)
[2023-01-05] MEDS: Propranolol 20 MG Tab PO SCH (08:34)
[2023-01-05] MEDS: Furosemide 20 MG Tab PO SCH (08:37)
[2023-01-05] MEDS: Apixaban 2.5 MG Tab PO SCH (08:37)
[2023-01-05] MEDS: cefTRIAXone 1 GM Vial IVPUSH SCH (08:53)
[2023-01-05] MEDS: Azithromycin 500 MG in Sodium Chloride 0.9% 250 ML IV SCH (08:53)
[2023-01-05 11:55] VITALS: PULSE 80
== END 2023-01-05 12:00 | disposition home or self-care (01) | DRG 194 ==
LOC: VM.ED 11:12 → SUPCPDRO 11:12 → VM.MS 12:31
PROVIDERS: ADMIT Family Medicine; ATTEND Family Medicine
DX: J18.9 Pneumonia, unspecified organism (principal); I10 Essential (primary) hypertension; E78.00 Pure hypercholesterolemia, unspecified; I48.91 Unspecified atrial fibrillation; E87.20 Acidosis, unspecified; I50.32 Chronic diastolic (congestive) heart failure; Z68.29 Body mass index [BMI] 29.0-29.9, adult; E11.9 Type 2 diabetes mellitus without complications; I48.0 Paroxysmal atrial fibrillation; E78.5 Hyperlipidemia, unspecified; K21.9 Gastro-esophageal reflux disease without esophagitis; E66.9 Obesity, unspecified; Z20.822 Contact with and (suspected) exposure to COVID-19; G47.30 Sleep apnea, unspecified; M10.9 Gout, unspecified; M19.90 Unspecified osteoarthritis, unspecified site; I11.0 Hypertensive heart disease with heart failure; Z85.46 Personal history of malignant neoplasm of prostate; Z79.01 Long term (current) use of anticoagulants; Z79.899 Other long term (current) drug therapy; Z86.010 Personal history of colon polyps; Z86.73 Personal history of transient ischemic attack (TIA), and cerebral infarction without residual deficits; Z88.8 Allergy status to other drugs, medicaments and biological substances; Z87.891 Personal history of nicotine dependence; Z90.49 Acquired absence of other specified parts of digestive tract; Z90.89 Acquired absence of other organs; Z98.890 Other specified postprocedural states; Z88.6 Allergy status to analgesic agent
CPT/HCPCS: 0241U; 36415; 71045; 80048; 80053; 81001; 83605; 83735; 83880; 84145; 84443; 84484; 85025; 86140; 87040; 93005; 96374; 99285-25; A9270-GY; J0456; J0696; J3490; J7030; J7050